=== PATIENT | male | born 1945 | race Caucasian/White ===

== ENCOUNTER 2019-12-22 13:20 | Outpatient (CLI) | payer MEDICARE, SELFPAY ==
--- NOTE | 2019-12-22 13:22 | ECG_ITS ---
Measurements Intervals [place] Rate: 57 P: 45 [place]: 167 QRS: -4 QRSD: 96 T: 61 QT: 380 QTc: 372 Interpretive Statements SINUS BRADYCARDIA DELAYED PRECORDIAL R/S TRANSITION BASELINE ARTIFACT- I, III, AVR, AVL, AVF BORDERLINE ECG Electronically Signed On 12-22-2019 13:44:12 CDT by Perez Mata D.O.
== END 2019-12-22 13:21 | disposition home or self-care (01) ==
PROVIDERS: PCP Family Medicine Adolescent Medicine; Visit Provider Urology
DX: Z87.438 Personal history of other diseases of male genital organs (principal); E78.00 Pure hypercholesterolemia, unspecified; R94.31 Abnormal electrocardiogram [ECG] [EKG]
CPT/HCPCS: 87086; 93005

== ENCOUNTER 2023-03-19 12:41 | Outpatient (CLI) | payer MEDICARE, SELFPAY ==
--- NOTE | ~2023-03-19 | PE_ITS ---
EXAMINATION: PET_PETPSMAST_PT DATE: 03/19/2023 15:34 INDICATION: Malignant neoplasm of prostate. TECHNIQUE: 9.002 mCi of piflufolastat F-18 was administered intravenously. Low dose computed tomograp hy (CT) images were acquired from the base of the brain to the proximal thighs for attenuation correc tion and anatomic localization. Automated exposure control was employed. Dose-length product (DLP) wa s 494 mGy-cm. Positron emission tomography (PET) images were acquired in the same distribution. COMPARISON: None FINDINGS: Head/neck: There are no pathologically enlarged lymph nodes. Chest: Lungs demonstrate mild atelectasis. There are calcified pleural plaques on the left. No pleura l effusion. The heart size is normal. There are coronary artery calcifications. No pericardial effusi on. There are calcifications of aortic valve. There is a small sliding hiatal hernia. Abdomen/pelvis/proximal thighs: The liver, gallbladder, spleen, pancreas, and adrenal glands are norm al. There is cortical thinning of the kidneys. There is calcified atherosclerosis of the aorta and ma ny of the other arteries. The prostate is severely enlarged with asymmetric extension into the bladde r on the right. There is focal increased activity in the posterior inferior prostate at midline with maximum SUV of 6.0. There is diverticulosis of the colon without evidence of diverticulitis. There ar e no pathologically enlarged lymph nodes. There is no free intraperitoneal fluid. There is no osseous malignancy. IMPRESSION: 1. Severely enlarged prostate with focal increased activity in the posterior inferior prostate at the midline, consistent with primary malignancy. No evidence of metastatic disease. Reviewed, dictated and finalized at location A. IMPRESSION: 1. Severely enlarged prostate with focal increased activity in the posterior in ferior prostate at the midline, consistent with primary malignancy. No evidence of metastatic disease.
== END 2023-03-19 12:42 | disposition home or self-care (01) ==
PROVIDERS: PCP Family Medicine Adolescent Medicine; Visit Provider Urology
DX: C61 Malignant neoplasm of prostate (principal); R97.20 Elevated prostate specific antigen [PSA]; N40.0 Benign prostatic hyperplasia without lower urinary tract symptoms
CPT/HCPCS: 78815; A9595

== ENCOUNTER 2023-04-15 19:29 | Inpatient (IN) | payer MEDICARE, SELFPAY ==
--- NOTE | ~2023-04-15 | CT_ITS ---
CT of the Abdomen and Pelvis: Indication: Hematuria Technique: 2.5 mm axial scans were obtained through the abdomen and pelvis following intravenous adm inistration of 100 cc of Omnipaque 350. Dose reduction technique was used on this scan by utilizing a utomated exposure control and iterative reconstruction technique. The dose-length product (DLP) was 7 75.11 mGy-cm. Findings: Scans through the lung bases demonstrate calcified left basilar pleural plaque. The liver, spleen, pancreas, gallbladder, adrenals and kidneys are within normal limits. There are at herosclerotic calcifications of the aorta. No lymphadenopathy. No bowel obstruction or bowel wall thickening. There is no evidence to suggest acute appendicitis. Images through the pelvis were performed. Orta catheter present in the urinary bladder. Large amount of hyperdensity are present in the urinary bladder, consistent with blood products. Small amount of air also present in the urinary bladder. Prostate gland is enlarged. No ascites. Impression: Large amount of hyperdense blood products within the urinary bladder, as well as Orta catheter ballo on and small amount of intraluminal air in urinary bladder. Enlarged, heterogeneous prostate gland. 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 Enlarged, heterogeneous prostate gland.
--- NOTE | ~2023-04-15 | US_ITS ---
EXAMINATION: US pelvic limited INDICATION: Gross hematuria, assess catheter position TECHNIQUE: Targeted ultrasound urinary bladder is obtained. COMPARISON: CT from today FINDINGS: Sonographic images demonstrate the Orta catheter within the urinary bladder. The bladder i s somewhat decompressed. Hyperechoic serial surrounding the Orta catheter is consistent with hematom a as seen on the comparison CT. IMPRESSION: 1. Orta catheter within the urinary bladder. 2. Bladder hematoma. Reviewed, dictated and finalized at location B. 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
[2023-04-15 19:44] VITALS: BP 187/100; PULSE 75; RESP 14; TEMP 36.7; O2SAT 100
--- NOTE | 2023-04-15 20:34 | ED.MALEGU ---
HPI - Male Genitourinary General Chief complaint: Urogenital-Male Stated complaint: urinary retention Time Seen by Provider: 04/15/23 20:19 History of Present Illness HPI Narrative: This is a 78-year-old male with a regular over the last 1-3 has had surgery on his prostate 8 days ago. He did note hematuria on 04/13/2023 which was thick bloody discharge from his penis. He called his urologist, Dr. Matamoros who recently said that this sounded normal and anticipated that it would resolve but possibly recur and this was normal healing. Patient states urine did return to normal yellow and he has been intermittently passing clots while voiding which she was told would also be normal. Approximately 4 PM today was his last void which contained clots. Shortly thereafter he began to have pain at his penis and in his abdomen and he was unable to void. He thought perhaps it was blocking his urethra and he tried to drink a lot of water. He denies any fevers. In acute distress complaining of abdominal pain but denies any back pain. He denies any underlying kidney dysfunction. No scrotal pain or swelling. Scheduled for follow up with urologist in July 2023. Related Data Home Medications Medication Instructions Recorded Confirmed aspirin 325 mg tablet 325 mg PO DAILY 12/20/19 12/05/22 atorvastatin 40 mg tablet 40 mg PO DAILY 12/20/19 12/05/22 cholecalciferol (vitamin D3) 25 25 mcg PO DAILY 12/20/19 12/05/22 mcg (1,000 unit) tablet clopidogrel 75 mg tablet (Plavix) 75 mg PO DAILY 12/20/19 12/05/22 ezetimibe 10 mg tablet 10 mg PO DAILY 12/20/19 12/05/22 modafinil 200 mg tablet 200 mg PO QAM PRN drowsiness 11/29/21 12/05/22 Allergies Allergy/AdvReac Type Severity Reaction Status Date / Time No Known Allergies Allergy Unknown Verified 04/15/23 20:55 [facility] Past Medical History Medical History (Updated 04/15/23 @ 23:38 by Annamarie Malone MD) Chronic kidney disease, stage 3a History of placement of stent in LAD coronary artery (~2009) Surgical History Surgical History (Updated 04/15/23 @ 22:22 by Annamarie Malone MD) History of prostate surgery HoLEP 04/07/23 Family History Family History Other Asthma Sibling Heart disease Other Colon polyp Social History Social History Smoking status: Never smoker Second hand tobacco smoke exposure: No Alcohol intake: never Substance use: never Substance use type: does not use Lack of Transportation: No Lack of Food: Never True Current Housing: I Have Housing Concerned About Future Housing: No Difficulty Paying Gas/Electric Bills: No Difficulty Paying for Meds: No Currently Unemployed: No Education: Master's Degree or Higher Difficulty w/ Childcare or Family Care: No Living arrangements: with family Occupation/Education: retired Gender identity (if verbalized by the patient): Male Sexual Orientation (if Verbalized by the Patient): Straight or Heterosexual Spiritual care concerns: No Agree to blood products: Yes Exam Const: General: alert; No confusion or diaphoretic Nutritional Appearance: well nourished Limitations: no limitations Other: Patient is initially in moderate distress, writhing in the bed clutching his abdomen and penis HENMT: Head: normal to inspection Other: Gross auditory acuity intact Resp: Effort & Inspection: normal respiratory effort, not labored, no retractions, not tachypneic and no use of accessory muscles Cardio: Rate: regular rate, not bradycardic and not tachycardic GI: GI Palp: Yes Soft to palpation, No Tenderness to palpation present (GI), No Guarding due to palpation present (GI) and No Rigid due to palpation : General: Yes no CVA tenderness Penis: Yes normal penis (though blood at the meatus) Scrotum: scrotum normal Testes: Testes normal Other: No inguina
[2023-04-15 20:44] VITALS: BP 154/87; PULSE 65; RESP 18; O2SAT 100
[2023-04-15 20:44] LABS: Basophils Percent Auto 0.2 % (0.2-1.2); Eosinophils Absolute Auto 0.2 K/mm3 (0-0.3); Eosinophils Percent Auto 1.5 % (0-4.4); Hematocrit 34.7 % (42.0-52.0); Hemoglobin 10.9 g/dL (14.0-18.0); Immature Granulocyte Absolute 0.08 K/mm3 (0.00-0.031); Immature Granulocyte Percent A 0.6 % (0-0.5); Lymphocytes Absolute Auto 1.42 K/mm3 (0.9-3.2); Lymphocytes Percent Auto 10.9 % (18.3-44.2); Mean Corpuscular HGB Conc 31.4 g/dl (32-36); Mean Corpuscular Hemoglobin 31.1 pg (26-34); Mean Corpuscular Volume 98.9 fl (80-100); Mean Platelet Volume 8.9 fl (7.4-10.4); Monocytes Absolute Auto 1.3 K/mm3 (0.1-0.6); Monocytes Percent Auto 9.8 % (2.6-8.5); Neutrophils Absolute Auto 10.1 K/mm3 (1.3-6.7); Platelet Count Result 354 k/mm3 (150-375); Red Blood Count 3.51 M/mm3 (4.6-6.20); Red Cell Distribution Width 13.5 % (11.5-14.5); White Blood Count 13.1 K/mm3 (4.5-10.0)
[2023-04-15 20:54] LABS: Prothrombin Time 13.3 Seconds (11.1-14.7)
--- NOTE | 2023-04-15 20:55 | PC.NURSE ---
Patient refused pain medication at this time.
[2023-04-15 20:56] LABS: Anion Gap 7 mmol/L (8-16); Blood Urea Nitrogen 24 mg/dL (9-20); Calcium 8.5 mg/dL (8.4-10.2); Carbon Dioxide 22 mmol/L (22-30); Chloride 103 mmol/L (98-107); Estimated CRCL calculation 35 ml/min; Estimated Glomerular Filt Rate 42; Glucose 130 mg/dL (65-110); Potassium 3.4 mmol/L (3.4-5.0); Sodium 132 mmol/L (137-145)
[2023-04-15] MEDS: SODIUM CHLORIDE 0.9% IV 1,000 ML 500 ML IV CONT (22:36)
[2023-04-15] MEDS: MORPHINE SULFATE (*CRX) 4 MG/ML INJ IV PUSH ×2 (22:36→23:14)
[2023-04-15 22:51] LABS: Hemoglobin 10.6 g/dL (14.0-18.0)
[2023-04-15 22:59] LABS: Estimated CRCL calculation 40 ml/min; Estimated Glomerular Filt Rate 49
[2023-04-16 00:56] VITALS: BP 128/80; PULSE 84; RESP 15; O2SAT 100
[2023-04-16 01:30] VITALS: BP 152/87; PULSE 81; RESP 20; TEMP 36.6; O2SAT 100
[2023-04-16 01:32] VITALS: BMI 25.9
--- NOTE | 2023-04-16 01:43 | ADMGEN ---
This patient, Praveen Moreno, was admitted to [facility] Surg Room 319-01. Patient/family oriented to hospital policies and general routines including ID bracelet, bed and alarms, visiting hours, pain management, procedures, bathroom and other care routines, personal items, smoking policy, room service/diet, and visiting hours. Information on how to activate the Rapid Response Team has been discussed. Patient/Family are encouraged to report perceived risks to care and to ask questions if they do not understand what they are told or what they should do.
[2023-04-16] MEDS: ACETAMINOPHEN 500 MG TABLET 1000 MG PO (01:53)
[2023-04-16] MEDS: traZODone HCL 50 MG TABLET PO (01:54)
[2023-04-16 06:00] VITALS: BP 100/64; PULSE 69; RESP 16; TEMP 37.4; O2SAT 96
--- NOTE | 2023-04-16 08:03 | PM.IMHP ---
H&P: HPI History of Present Illness Date/Time: 04/16/23 08:03 Chief Complaint: Suprapubic pain, unable to pass urine Narrative: This is a 78-year-old with history of BPH, status post HoLEP prostate surgery [address] Woodard, CAD, hyperlipidemia present ED with a chief complaint of bloody urine and trouble with urination.? Patient has been having intermittent hematuria and passing clots in since the surgery. Sensitive 4:00 p.m. yesterday, patient cannot pass urine, and patient also has suprapubic pain. Patient denies chest pain, shortness breast, headache, focal weakness, nausea vomiting. Patient came to ED for evaluation, bladder scan is performed which demonstrates between 300-[address] shows Large amount of hyperdense blood products within the urinary bladder, as well as Orta catheter balloon and small amount of intraluminal air in urinary bladder. Enlarged, heterogeneous prostate gland. In the ED, patient was also found have elevated BUN creatinine above baseline, anemia, hemoglobin close to baseline. Orta catheter is placed in the ED, bladder irrigation was initiated. ER physician also consulted urologist. We admit patient for further evaluation and management Review of Systems Review of Systems: ROS negative except above PMFSH Past Medical History Medical History Chronic kidney disease, stage 3a History of placement of stent in LAD coronary artery (~2009) Surgical History Surgical History History of prostate surgery HoLEP 04/07/23 Family History Family History Other Asthma Sibling Heart disease Other Colon polyp Social History Social History Smoking status: Never smoker Second hand tobacco smoke exposure: No Alcohol intake: never Substance use: never Substance use type: does not use Lack of Transportation: No Lack of Food: Never True Current Housing: I Have Housing Concerned About Future Housing: No Difficulty Paying Gas/Electric Bills: No Difficulty Paying for Meds: No Currently Unemployed: No Education: Master's Degree or Higher Difficulty w/ Childcare or Family Care: No Living arrangements: with family Occupation/Education: retired Gender identity (if verbalized by the patient): Male Sexual Orientation (if Verbalized by the Patient): Straight or Heterosexual Spiritual care concerns: No Agree to blood products: Yes Meds Home Medications and Allergies Home Medications Medication Instructions Recorded Confirmed Type aspirin 325 mg tablet 325 mg PO DAILY 12/20/19 12/05/22 History atorvastatin 40 mg tablet 40 mg PO DAILY 12/20/19 12/05/22 History cholecalciferol (vitamin D3) 25 25 mcg PO DAILY 12/20/19 12/05/22 History mcg (1,000 unit) tablet clopidogrel 75 mg tablet (Plavix) 75 mg PO DAILY 12/20/19 12/05/22 History ezetimibe 10 mg tablet 10 mg PO DAILY 12/20/19 12/05/22 History modafinil 200 mg tablet 200 mg PO QAM PRN drowsiness 11/29/21 12/05/22 History indomethacin 50 mg capsule 50 mg PO TID PRN pain #30 caps 05/13/22 12/05/22 Rx zolpidem 10 mg tablet 10 mg PO PRN PRN Insomnia #90 tabs 07/22/22 12/05/22 Rx esomeprazole magnesium 40 mg 40 mg PO DAILY #90 caps 10/22/22 12/05/22 Rx capsule,delayed release Allergies Allergy/AdvReac Type Severity Reaction Status Date / Time No Known Allergies Allergy Unknown Verified 04/15/23 20:55 Vital Signs Vital Signs - 24 hr 04/15/23 19:44 04/15/23 20:44 04/16/23 00:56 Temperature 98.0 F Pulse Rate 75 65 84 Respiratory Rate 14 18 15 Blood Pressure 187/100 H 154/87 H 128/80 Pulse Oximetry 100 100 100 Oxygen Delivery Room Air 04/16/23 01:30 04/16/23 06:00 Temperature 97.9 F 99.3 F Pulse Rate 81 69 Respiratory Rate 20 16 Blood P
[2023-04-16] MEDS: TOLTERODINE TARTRATE 2 MG TABLET PO ×2 (08:13→21:41)
[2023-04-16 09:20] LABS: Iron 35 ug/dL (49-181)
[2023-04-16 09:30] LABS: Percent Iron Saturation 16 % (20-50)
[2023-04-16] MEDS: HYDROmorphone HCL INJ (*CRX) 1 MG/ML SYR 0.5 MG IV PUSH ×3 (09:30→21:41)
[2023-04-16] MEDS: cefTRIAXone 2 GM/NS 100 ML 2 GM/100 ML BAG IVPB (10:46)
--- NOTE | 2023-04-16 12:31 | WPDURCON ---
Assessment and Plan Assessment and plan (1) Urinary obstruction: Code(s): N13.9 - Obstructive and reflux uropathy, unspecified Status: Acute Assessment and Plan: Pt's catheter was removed and cleared of clot, then re-inserted and multiple large clots were removed for >20 minutes until urine was light pink/clear. The patient was visibly more comfortable after this and reported relief of pain, his bladder distention was also improved. CBI was restarted and is flowing to gravity with clear urine at this time. Pt. is resting comfortably after the procedure. (2) Complicated UTI (urinary tract infection): Code(s): N39.0 - Urinary tract infection, site not specified Status: Acute Assessment and Plan: Continue Ceftriaxone, unfortunately, no UA or culture was obtained before starting antibiotics, however I did order one to see if there is any chance it would grow something. (3) Post surgical complication: Qualifiers: Surgical complication system/body Area: genitourinary Code(s): T81.9XXA - Unspecified complication of procedure, initial encounter Status: Acute Assessment and Plan: Post operative gross hematuria s/p HOLEP, likely secondary to restarting anti coagulants, bladder irritation, increased activity or possible UTI. (4) Hematuria: Qualifiers: Hematuria type: gross Qualified Code(s): R31.0 - Gross hematuria Code(s): R31.9 - Hematuria, unspecified Status: Acute Assessment and Plan: Continue CBI until urine clears, then ok to wean CBI to off. Restart CBI immediately if blood returns, hold all anticoagulants and supplements at this time. Urology Consult Note HPI Date Seen: 04/16/23 Time Seen: 09:30 Requesting Physician: Ranjeet Monroy MD Primary Care Provider: Hieu Miranda MD Consult Narrative Reason for consult: Urinary Retention, Clots and Hematuria s/p HOLEP Narrative: Praveen Moreno is a 78 year old male who presented tot he ER late last night for acute onset of gross hematuria with clots and inability to urinate. He had a HOLEP with Dr. Matamoros on 04/07/23 and did relatively well afterward, but suddenly developed gross hematuria yesterday. He is on Plavix and ASA at home as well as an array of vitamins which he had started again. He denies dysuria and is afebrile. He did not have a UA or culture sent in the ER. He had a 22fr [address] bustillos placed in the ER which isn't draining well causing pelvic pain and spasms. A CT scan was done showing a moderate amount of blood clot in the bladder, but catheter placed in the bladder. SHELLY was also done showing a bladder hematoma. WBC is 13.1 and creatinine 1.40. Ceftriaxone was started before a urine culture could be collected. He has CBI running but it is not draining. Review of Systems Cardiovascular: Cardiovascular: Reports no additional cardiovascular complaints and Denies chest pain Respiratory: Respiratory: Reports no additional respiratory complaints Gastrointestinal: Gastrointestinal: Reports abdominal pain, Reports GI cramping, Denies nausea and Denies vomiting Genitourinary: Genitourinary: Reports hematuria, Reports oliguria, Denies genital pain, Denies flank pain and Reports urinary hesitancy PMFSH Past Medical History Medical History Chronic kidney disease, stage 3a History of placement of stent in LAD coronary artery (~2009) Surgical History Surgical History History of prostate surgery HoLEP 04/07/23 Family History Family History Other Asthma Sibling Heart disease Other Colon polyp Social History Social History Smoking status: Never smoker Second hand tobacco smoke exposure: No Alcohol intake: never Substance
--- NOTE | 2023-04-16 13:11 | PC.NURSE ---
On 04/16/23, the student, [Jovanna Velasquez ], provided care and completed Jodange documentation on this patient. I have reviewed the student's documentation and agree with the findings.
[2023-04-16 14:00] VITALS: BP 111/55; PULSE 67; RESP 16; TEMP 37.8; O2SAT 94
[2023-04-16 20:00] VITALS: PULSE 67; RESP 16; O2SAT 94
[2023-04-16 22:00] VITALS: BP 129/80; PULSE 99; RESP 18; TEMP 37.4; O2SAT 98
--- NOTE | 2023-04-16 22:23 | WPDUROPN2 ---
Progress Note: A&P Assessment and Plan (1) Hematuria: Qualifiers: Hematuria type: gross Qualified Code(s): R31.0 - Gross hematuria Code(s): R31.9 - Hematuria, unspecified Status: Acute Assessment and Plan: He is in clot retention. Will bring to OR to get urine flowing again. (2) Urinary obstruction: Code(s): N13.9 - Obstructive and reflux uropathy, unspecified Status: Acute Assessment and Plan: Will have new catheter after clot evacuation. Subjective Subjective Date/Time Seen: 04/16/23 22:23 Interval history: I was called to see the patient due to pelvic pain and no urine output. His catheter was in place with CBI off at the time of the visit. The catheter would not flush. It was repositioned and would not flush. I attempted to place a 24 [place] hematuria catheter, but his urethra was too narrow and the catheter could not be placed. I then attempted a 22 [place] hematuria catheter, but the urethra was too narrow. I was able to place a 20 [place] Coude catheter, but this would also not flush. Review of Systems Review of Systems: All systems reviewed & are unremarkable except as noted in HPI and below Exam Const: General: comfortable and no acute distress Resp: Effort & Inspection: normal respiratory effort GI: Other: suprapubic distention is noted. Urinary Catheter: Urinary Catheter: other (no draining) Psych: Mental Status: mental status grossly normal Objective Data Vital Signs Vital Signs: Vital Signs - 24 hr 04/16/23 00:56 04/16/23 01:30 04/16/23 06:00 Temperature 36.6 C 37.4 C Pulse Rate 84 81 69 Respiratory Rate 15 20 16 Blood Pressure 128/80 152/87 H 100/64 Pulse Oximetry 100 100 96 Oxygen Delivery 04/16/23 08:00 04/16/23 14:00 Temperature 37.8 C H Pulse Rate 67 Respiratory Rate 16 Blood Pressure 111/55 L Pulse Oximetry 94 Oxygen Delivery Room Air Intake/Output Intake/Output: Intake & Output 04/13/23 04/14/23 04/15/23 04/16/23 23:59 23:59 23:59 23:59 Intake Total 74351 Output Total 45726 Balance -80503 Meds/Results Medications: Active Medications Generic Name Dose Route Start Last Admin Trade Name Freq PRN Reason Stop Dose Admin Acetaminophen 1,000 mg 04/16/23 01:28 04/16/23 01:53 Acetaminophen 500 Mg Tablet PO 1,000 mg Q6H PRN Administration Mild Pain (1-3) or Fever Al Hydrox/Mg Hydrox/Simethicone 30 ml 04/16/23 01:28 Mag Hydrox/Al Hydrox/Simeth 30 Ml Udc PO Q6H PRN Indigestion Hydromorphone HCl 0.5 mg 04/16/23 01:27 04/16/23 21:41 Hydromorphone Hcl Inj (*Crx) 1 Mg/Ml Syr IV PUSH 0.5 mg Q3H PRN Administration Pain Rated 7-10 Ceftriaxone Sodium 2 gm in 100 mls @ 200 mls/hr 04/16/23 09:00 04/16/23 11:16 Rocephin 2 Gm/Ns 100 Ml IVPB Infused Q24H ITZEL Infusion Ondansetron HCl 4 mg 04/16/23 01:28 Ondansetron Inj 4 Mg/2 Ml Vial IV PUSH Q6H PRN Nausea And Vomiting Polyethylene Glycol 17 gm 04/16/23 01:28 Polyethylene Glycol 3350 17 Gm Powd.Pack PO QAM PRN Constipation Tolterodine Tartrate 2 mg 04/16/23 09:00 04/16/23 21:41 Tolterodine Tartrate 2 Mg Tablet PO 2 mg Q12HR ITZEL Administration Trazodone HCl 50 mg 04/16/23 01:29 04/16/23 01:54 Trazodone Hcl 50 Mg Tablet PO 50 mg HS PRN Administration Insomnia Radiology Results: ITS Impressions Abdomen/Pelvis CT 04/16/23 05:36 Impression: Large amount of hyperdense blood products within the urinary bladder, as well as Orta catheter balloon and small amount of intraluminal air in urinary bladder. Enlarged, heterogeneous prostate gland. Pelvis Ultrasound 04/16/23 08:38 IMPRESSION: 1. Orta catheter within the urinary bladder. 2. Bladder hematoma. Labs Labs: Laboratory Results - last 24 hr 04/15/23 04/16/23 22:45 08:39 Hgb 10.6 L Hct 33.0 L Creatinine 1.40 H Estim Creat Clear Calc
--- NOTE | 2023-04-16 23:15 | WPDANESEPP ---
Anes - Eval Pre Procedure Procedure: Operation Date: 04/16/23 23:15 Proposed Procedures p Cystoscopy, Evacuation Bladder Clots - Zane Giordano MD Date/Time: 04/16/23 23:15 Pre Op Diagnosis: Acute Urinary Retention; Gross Hematuria; Postop C Patient Data Age: 78 Gender: M Height: 1.75 m Weight: 79.5 kg Last Vital Signs Temp 37.8 C H 04/16/23 14:00 Pulse 67 04/16/23 20:00 Resp 16 04/16/23 20:00 BP 111/55 L 04/16/23 14:00 Pulse Ox 94 04/16/23 20:00 O2 Del Method Room Air 04/16/23 20:00 Allergies Allergy/AdvReac Type Severity Reaction Status Date / Time No Known Allergies Allergy Unknown Verified 04/15/23 20:55 Home Medications Medication Instructions Recorded Confirmed Type aspirin 325 mg tablet 325 mg PO DAILY 12/20/19 12/05/22 History atorvastatin 40 mg tablet 40 mg PO DAILY 12/20/19 12/05/22 History cholecalciferol (vitamin D3) 25 25 mcg PO DAILY 12/20/19 12/05/22 History mcg (1,000 unit) tablet clopidogrel 75 mg tablet (Plavix) 75 mg PO DAILY 12/20/19 12/05/22 History ezetimibe 10 mg tablet 10 mg PO DAILY 12/20/19 12/05/22 History modafinil 200 mg tablet 200 mg PO QAM PRN drowsiness 11/29/21 12/05/22 History indomethacin 50 mg capsule 50 mg PO TID PRN pain #30 caps 05/13/22 12/05/22 Rx zolpidem 10 mg tablet 10 mg PO PRN PRN Insomnia #90 tabs 07/22/22 12/05/22 Rx esomeprazole magnesium 40 mg 40 mg PO DAILY #90 caps 10/22/22 12/05/22 Rx capsule,delayed release Laboratory Tests 04/16/23 08:39 Iron 35 L ug/dL (49-181) TIBC 218 L ug/dL (265-497) % Saturation 16 L % (20-50) Ferritin 93.30 ng/mL (11.1-264) Patient hx anesthesia problems: none Family hx anesthesia problems: none Results Review: All pre-operative results and documents have been reviewed as part of the pre-operative evaluation. [facility] Past Medical History Medical History (Updated 04/16/23 @ 23:16 by Carmen Rodriges CRNA) BPH (benign prostatic hyperplasia) Chronic kidney disease, stage 3a CKD (chronic kidney disease) FH: HTN (hypertension) GERD (gastroesophageal reflux disease) History of placement of stent in LAD coronary artery (~2009) HLD (hyperlipidemia) Surgical History Surgical History History of prostate surgery HoLEP 04/07/23 Family History Family History Other Asthma Sibling Heart disease Other Colon polyp Social History Social History Smoking status: Never smoker Second hand tobacco smoke exposure: No Alcohol intake: never Substance use: never Substance use type: does not use Lack of Transportation: No Lack of Food: Never True Current Housing: I Have Housing Concerned About Future Housing: No Difficulty Paying Gas/Electric Bills: No Difficulty Paying for Meds: No Currently Unemployed: No Education: Master's Degree or Higher Difficulty w/ Childcare or Family Care: No Living arrangements: with family Occupation/Education: retired Gender identity (if verbalized by the patient): Male Sexual Orientation (if Verbalized by the Patient): Straight or Heterosexual Spiritual care concerns: No Agree to blood products: Yes Exam Day of Procedure 04/16/23 23:15 Patient weight: normal Heart: regular rate and rhythm Lungs: normal air movement Airway: Mallampati scale Neurological: alert and oriented
--- NOTE | 2023-04-16 23:35 | P.PNAN_ITS ---
Anes - Eval Final PreProcedure Day of Procedure 04/16/23 23:35 Patient weight: overweight Heart: regular rate and rhythm Lungs: clear to auscultation Airway: Mallampati scale class II Neurological: alert and oriented Last oral intake: >/= 8 hours ASA classification: III Emergent: yes Anesthetic plan: proceed Anesthesia type and monitoring: general LMA and standard monitoring Results Review: All pre-operative results and documents have been reviewed as part of the pre- operative evaluation. Informed Consent: The patient's anesthetic plan and its attendant risks and benefits were discussed with the patient/family/POA. Questions were solicited and answers provided to the satisfaction of the patient/family/POA.
[2023-04-16] MEDS: LIDOCAINE HCL 2% GEL UROJET 10 ML PKG MUCOUS MEM (23:50)
--- NOTE | 2023-04-16 23:57 | W.PM.PROC2 ---
Procedure Note - Detailed Date of Procedure 04/16/23 Pre-op Diagnosis Acute Urinary Retention; Gross Hematuria; Postop C Post-op Diagnosis Same Procedure Performed cystoscopy with clot evacuation, fulguration of bleeding, and complex catheter placement Surgeon Zane Giordano MD Anesthesia General Indications hematuria Findings clot in bladder. Small area of bleeding at left bladder neck Description of Procedure The patient was brought to the operating room in stable condition. He was placed under general anesthesia. He was prepped and draped in sterile fashion. A 22 Setswana cystoscope was advanced through the urethra into the bladder. Clot was seen. The clot was evacuated. A small area of bleeding was noted on the left bladder neck. This was fulgurated. The bladder and prostate were examined. Evidence of the prior HOLEP was seen. The bladder neck was very wide. The cystoscope was removed. Lidocaine jelly was placed. A [address] hematuria catheter was placed. The bladder was flushed. No clots were noted. CBI was started. The patient tolerated the procedure well. Estimated Blood Loss 10 Drains Yes Pathology None sent Complications No immediate complications Condition Stable Disposition PACU
[2023-04-17] VITALS (7 sets, daily range): BP systolic 104–128; BP diastolic 63–81; PULSE 66–89; RESP 14–20; TEMP 36.6–37.9; O2SAT 90–100
[2023-04-17] MEDS: LACTATED RINGERS 1,000 ML 30 ML IV CONT (00:04)
[2023-04-17] MEDS: HYDROmorphone HCL INJ (*CRX) 1 MG/ML SYR 0.5 MG IV PUSH ×4 (01:48→21:42)
--- NOTE | 2023-04-17 06:50 | WPDUROPN2 ---
Progress Note: A&P Assessment and Plan (1) Urinary obstruction: Code(s): N13.9 - Obstructive and reflux uropathy, unspecified Status: Acute (2) Hematuria: Qualifiers: Hematuria type: gross Qualified Code(s): R31.0 - Gross hematuria Code(s): R31.9 - Hematuria, unspecified Status: Acute Assessment and Plan: Continue CBI today Tentatively plan voiding trial tomorrow if urine remains clear Subjective Subjective Date/Time Seen: 04/17/23 06:50 Interval history: Comfortable following clot evacuation last night Urine clear Review of Systems Cardiovascular: Cardiovascular: Denies chest pain, Denies lightheadedness, Denies palpitations and Denies dyspnea Respiratory: Respiratory: Denies dyspnea Gastrointestinal: Gastrointestinal: Denies diarrhea, Denies nausea and Denies vomiting Genitourinary: Genitourinary: Denies hematuria and Denies dysuria Endocrine: Endocrine: Denies palpitations Exam Const: General: no acute distress Resp: Effort & Inspection: normal respiratory effort GI: Inspection: non-distended GI Palp: No abdominal tenderness and No Guarding due to palpation present (GI) Auscultation: normal bowel sounds Objective Data Vital Signs Vital Signs: Vital Signs - 24 hr 04/16/23 08:00 04/16/23 14:00 04/16/23 20:00 Temperature 100.1 F H Pulse Rate 67 67 Respiratory Rate 16 16 Blood Pressure 111/55 L Pulse Oximetry 94 94 Oxygen Delivery Room Air Room Air Oxygen Flow Rate 04/17/23 00:04 04/17/23 00:15 04/17/23 00:30 Temperature 97.9 F Pulse Rate 89 76 76 Respiratory Rate 14 14 15 Blood Pressure 128/81 122/77 113/66 Pulse Oximetry 100 100 97 Oxygen Delivery Simple Face Mask Simple Face Mask Room Air Oxygen Flow Rate 10 10 04/17/23 00:40 04/16/23 22:00 Temperature 99.3 F Pulse Rate 76 99 Respiratory Rate 15 18 Blood Pressure 112/76 129/80 Pulse Oximetry 96 98 Oxygen Delivery Room Air Oxygen Flow Rate Intake/Output Intake/Output: Intake & Output 04/14/23 04/15/23 04/16/23 04/17/23 23:59 23:59 23:59 23:59 Intake Total 53437 150 Output Total 04265 063 [id number] -[id number] Meds/Results Medications: Active Medications Generic Name Dose Route Start Last Admin Trade Name Freq PRN Reason Stop Dose Admin Acetaminophen 1,000 mg 04/16/23 01:28 04/16/23 01:53 Acetaminophen 500 Mg Tablet PO 1,000 mg Q6H PRN Administration Mild Pain (1-3) or Fever Al Hydrox/Mg Hydrox/Simethicone 30 ml 04/16/23 01:28 Mag Hydrox/Al Hydrox/Simeth 30 Ml Udc PO Q6H PRN Indigestion Fentanyl Citrate 25 mcg 04/16/23 23:36 Fentanyl Citrate Inj (*Crx) 100 Mcg/2 Ml Vial IV PUSH Q2M PRN Pain Hydromorphone HCl 0.5 mg 04/16/23 01:27 04/17/23 01:48 Hydromorphone Hcl Inj (*Crx) 1 Mg/Ml Syr IV PUSH 0.5 mg Q3H PRN Administration Pain Rated 7-10 Ceftriaxone Sodium 2 gm in 100 mls @ 200 mls/hr 04/16/23 09:00 04/16/23 11:16 Rocephin 2 Gm/Ns 100 Ml IVPB Infused Q24H ITZEL Infusion Lactated Ringer's 1,000 mls @ 30 mls/hr 04/16/23 23:20 04/17/23 00:42 Lr - Lactated Ringers Iv IV CONT Infused .Q24H ITZEL Infusion Ondansetron HCl 4 mg 04/16/23 01:28 Ondansetron Inj 4 Mg/2 Ml Vial IV PUSH Q6H PRN Nausea And Vomiting Ondansetron HCl 4 mg 04/16/23 23:18 Ondansetron Inj 4 Mg/2 Ml Vial IV PUSH ONCE PRN Nausea Polyethylene Glycol 17 gm 04/16/23 01:28 Polyethylene Glycol 3350 17 Gm Powd.Pack PO QAM PRN Constipation Tolterodine Tartrate 2 mg 04/16/23 09:00 04/16/23 21:41 Tolterodine Tartrate 2 Mg Tablet PO 2 mg Q12HR ITZEL Administration Trazodone HCl 50 mg 04/16/23 01:29 04/16/23 01:54 Trazodone Hcl 50 Mg Tablet PO 50 mg HS PRN Administration Insomnia Radiology Results: ITS Impressions Abdomen/Pelvis CT 04/16/23 05:36 Impression: Large amount of hyperdense blood products with
--- NOTE | 2023-04-17 07:52 | PM.IMPN ---
Progress Note: A&P Assessment and Plan (1) Post surgical complication: Qualifiers: Surgical complication system/body Area: genitourinary Code(s): T81.9XXA - Unspecified complication of procedure, initial encounter Status: Acute (2) Acute kidney injury superimposed on CKD: Code(s): N17.9 - Acute kidney failure, unspecified; N18.9 - Chronic kidney disease, unspecified Status: Acute (3) Anemia: Qualifiers: Anemia type: other cause Other causes of anemia: acute posthemorrhagic Qualified Code(s): D62 - Acute posthemorrhagic anemia Code(s): D64.9 - Anemia, unspecified Status: Acute (4) Hematuria: Qualifiers: Hematuria type: gross Qualified Code(s): R31.0 - Gross hematuria Code(s): R31.9 - Hematuria, unspecified Status: Acute (5) Atherosclerotic heart disease of [place] coronary artery without angina pectoris: Code(s): I25.10 - Atherosclerotic heart disease of [place] coronary artery without angina pectoris Status: Acute (6) Pure hypercholesterolemia, unspecified: Code(s): E78.00 - Pure hypercholesterolemia, unspecified Status: Acute (7) Gastro-esophageal reflux disease without esophagitis: Code(s): K21.9 - Gastro-esophageal reflux disease without esophagitis Status: Acute (8) Complicated UTI (urinary tract infection): Code(s): N39.0 - Urinary tract infection, site not specified Status: Acute (9) Urinary obstruction: Code(s): N13.9 - Obstructive and reflux uropathy, unspecified Status: Acute Plan Urinary obstruction, Possible due to blood clot obstruction secondary to surgical complication Folic catheter is placed, irrigation per urologist's recommendation CT shows Large amount of hyperdense blood products within the urinary bladder, as well as Orta catheter balloon and small amount of intraluminal air in urinary bladder. Enlarged, heterogeneous prostate gland. ER physician consulted the urologist, follow recommendation Complicated UTI Patient has leukocytosis, low-grade fever, Possible complicated UTI Empirically treated with ceftriaxone IV, Follow-up urine culture and blood culture Patient has fever 100.3 over the night CASSIE on CKD Likely secondary to urinary obstruction Orta catheter is placed Follow-up BMP Gentle IV fluid History of CAD Hold aspirin and Plavix because of active bleeding Patient denies chest pain Hyperlipidemia Continue home medication Acute blood loss anemia Likely secondary to hematuria Follow-up CBC iron panel Subjective Date/time seen: 04/17/23 07:52 Interval history: Patient has a fever over the night 100.3 bladder irrigation, urine clear, pink urine, blood culture pending Exam Narrative: GENERAL: Pleasant, in no acute distress. Well-nourished. - EYES: EOMI. Anicteric. - HENT: Moist mucous membranes. - LUNGS: Clear to auscultation bilaterally, no wheezing, rhonchi, or rales. - CARDIOVASCULAR: Regular rate and rhythm. No murmur. No JVD. - ABDOMEN: Soft, non-tender and non-distended. No palpable masses. - EXTREMITIES: No edema. Peripheral pulses 2+. Non-tender. - NEUROLOGIC: No focal neurological deficits. CN II-XII grossly intact. - PSYCHIATRIC: Awake, Alert and oriented x 3. Appropriate mood and affect. - SKIN: No rashes or lesions. Warm. - LYMPH: No cervical lymphadenopathy. Objective Data Vital Signs Vital Signs: Vital Signs - 24 hr 04/16/23 08:00 04/16/23 14:00 04/16/23 20:00 Temperature 100.1 F H Pulse Rate 67 67 Respiratory Rate 16 16 Blood Pressure 111/55 L Pulse Oximetry 94 94 Oxygen Delivery Room Air Room Air Oxygen Flow Rate 04/17/23 00:04 04/17/23 00:15 04/17/23 00:30 Temperature 97.9 F Pulse Rate 89 76 76 Respiratory Rate 14 14 15 Blood Pressure 128/81 122/77 113/66 Pulse Oximetry 100 100 97 Oxygen Delivery Simple Face Mask Simple Face Mask Room Air Oxygen Flow Ra
[2023-04-17 08:24] LABS: Basophils Percent Auto 0.2 % (0.2-1.2); Eosinophils Absolute Auto 0.1 K/mm3 (0-0.3); Eosinophils Percent Auto 1.4 % (0-4.4); Hematocrit 30.7 % (42.0-52.0); Hemoglobin 9.4 g/dL (14.0-18.0); Immature Granulocyte Absolute 0.04 K/mm3 (0.00-0.031); Immature Granulocyte Percent A 0.4 % (0-0.5); Lymphocytes Absolute Auto 0.56 K/mm3 (0.9-3.2); Lymphocytes Percent Auto 5.7 % (18.3-44.2); Mean Corpuscular HGB Conc 30.6 g/dl (32-36); Mean Corpuscular Hemoglobin 30.5 pg (26-34); Mean Corpuscular Volume 99.7 fl (80-100); Mean Platelet Volume 8.7 fl (7.4-10.4); Monocytes Absolute Auto 0.6 K/mm3 (0.1-0.6); Monocytes Percent Auto 6.1 % (2.6-8.5); Neutrophils Absolute Auto 8.5 K/mm3 (1.3-6.7); Neutrophils Percent Auto 86.2 % (45.5-73.1); Platelet Count Result 346 k/mm3 (150-375); Red Blood Count 3.08 M/mm3 (4.6-6.20); Red Cell Distribution Width 13.4 % (11.5-14.5); White Blood Count 9.8 K/mm3 (4.5-10.0)
[2023-04-17 08:38] LABS: Anion Gap 4 mmol/L (8-16); Blood Urea Nitrogen 21 mg/dL (9-20); Calcium 8.5 mg/dL (8.4-10.2); Carbon Dioxide 27 mmol/L (22-30); Chloride 105 mmol/L (98-107); Estimated CRCL calculation 37 ml/min; Estimated Glomerular Filt Rate 45; Glucose 107 mg/dL (65-110); Potassium 4.3 mmol/L (3.4-5.0); Sodium 136 mmol/L (137-145)
--- NOTE | 2023-04-17 09:12 | WPDANESPN ---
Anes - Prog Note Post-Op Date/Time: 04/17/23 09:12 Cardiovascular status: normal Respiratory status: normal Airway patency: baseline Mental status: baseline Post-Op hydration status: normal Vital Signs: Last Vital Signs Temp 37.9 C H 04/17/23 06:00 Pulse 85 04/17/23 06:00 Resp 18 04/17/23 06:00 BP 127/65 04/17/23 06:00 Pulse Ox 94 04/17/23 06:00 O2 Del Method Room Air 04/17/23 00:40 O2 Flow Rate 10 04/17/23 00:15 Pain Score (VAS): 07/19 I/O: Intake & Output 04/16/23 04/17/23 04/17/23 23:59 07:59 15:59 Intake Total 240 150 Output Total 54005 22023 Balance -14517 -10166 Laboratory Tests 04/17/23 08:12 04/16/23 04/17/23 08:39 08:12 WBC Pending RBC Pending Hgb Pending Hct Pending MCV Pending MCH Pending MCHC Pending RDW Pending Plt Count Pending MPV Pending Immature Gran % (Auto) Pending Neut % (Auto) Pending Lymph % (Auto) Pending [place] % (Auto) Pending Eos % (Auto) Pending Baso % (Auto) Pending Lymph # (Auto) Pending [place] # (Auto) Pending Eos # (Auto) Pending Baso # (Auto) Pending Abs Immat Gran (auto) Pending Absolute Neuts (auto) Pending Absolute Nucleated RBC Pending Nucleated RBC % Pending Sodium 136 L Potassium 4.3 Chloride 105 Carbon Dioxide 27 Anion Gap 4 L BUN 21 H Creatinine 1.50 H Estim Creat Clear Calc 37 Estimated GFR 45 L Glucose 107 Calcium 8.5 Iron 35 L TIBC 218 L % Saturation 16 L Ferritin 93.30 Post-procedural complaints: none Patient Feedback: Patient satisfied with anesthetic care.
[2023-04-17] MEDS: TOLTERODINE TARTRATE 2 MG TABLET PO ×2 (09:40→22:27)
[2023-04-17] MEDS: cefTRIAXone 2 GM/NS 100 ML 2 GM/100 ML BAG IVPB (09:40)
[2023-04-17] MEDS: traZODone HCL 50 MG TABLET PO (21:43)
[2023-04-18] MEDS: HYDROcodone/acetaminophen (*CRX) 5-325 MG TABLET 1 TAB PO (05:38)
[2023-04-18 06:00] VITALS: BP 112/62; PULSE 86; RESP 18; TEMP 37; O2SAT 95
--- NOTE | 2023-04-18 06:56 | WPDUROPN2 ---
Progress Note: A&P Assessment and Plan (1) Urinary obstruction: Code(s): N13.9 - Obstructive and reflux uropathy, unspecified Status: Acute (2) Post surgical complication: Qualifiers: Surgical complication system/body Area: genitourinary Code(s): T81.9XXA - Unspecified complication of procedure, initial encounter Status: Acute Assessment and Plan: Urine perfectly clear this morning -> cahteter removed fo voiding trial Anticipate discharge midday Suggest discharge on Omnicef x5 days and a few pain pill(ie. [place]) Subjective Subjective Date/Time Seen: 04/18/23 06:56 Interval history: Comfortable, urine clear Review of Systems Cardiovascular: Cardiovascular: Denies chest pain, Denies lightheadedness, Denies palpitations and Denies dyspnea Respiratory: Respiratory: Denies dyspnea Gastrointestinal: Gastrointestinal: Denies diarrhea, Denies nausea and Denies vomiting Genitourinary: Genitourinary: Denies hematuria and Denies dysuria Endocrine: Endocrine: Denies palpitations Exam Const: General: no acute distress Resp: Effort & Inspection: normal respiratory effort GI: Inspection: non-distended GI Palp: No abdominal tenderness and No Guarding due to palpation present (GI) Auscultation: normal bowel sounds Objective Data Vital Signs Vital Signs: Vital Signs - 24 hr 04/17/23 08:00 04/17/23 14:00 04/17/23 22:00 Temperature 99.3 F 98.3 F Pulse Rate 77 66 Respiratory Rate 20 18 Blood Pressure 104/66 110/63 Pulse Oximetry 94 90 Oxygen Delivery Room Air 04/18/23 06:00 Temperature 98.6 F Pulse Rate 86 Respiratory Rate 18 Blood Pressure 112/62 Pulse Oximetry 95 Oxygen Delivery Intake/Output Intake/Output: Intake & Output 04/15/23 04/16/23 04/17/23 04/18/23 23:59 23:59 23:59 23:59 Intake Total 08182 3181 729 Output Total 67927 24190 1800 [facility] -[id number] [id number] [id number] Meds/Results Medications: Active Medications Generic Name Dose Route Start Last Admin Trade Name Freq PRN Reason Stop Dose Admin Acetaminophen 1,000 mg 04/16/23 01:28 04/16/23 01:53 Acetaminophen 500 Mg Tablet PO 1,000 mg Q6H PRN Administration Mild Pain (1-3) or Fever Al Hydrox/Mg Hydrox/Simethicone 30 ml 04/16/23 01:28 Mag Hydrox/Al Hydrox/Simeth 30 Ml Udc PO Q6H PRN Indigestion Fentanyl Citrate 25 mcg 04/16/23 23:36 Fentanyl Citrate Inj (*Crx) 100 Mcg/2 Ml Vial IV PUSH Q2M PRN Pain Hydromorphone HCl 0.5 mg 04/16/23 01:27 04/17/23 21:42 Hydromorphone Hcl Inj (*Crx) 1 Mg/Ml Syr IV PUSH 0.5 mg Q3H PRN Administration Pain Rated 7-10 Ceftriaxone Sodium 2 gm in 100 mls @ 200 mls/hr 04/16/23 09:00 04/17/23 09:40 Rocephin 2 Gm/Ns 100 Ml IVPB 200 mls/hr Q24H IZTEL Administration Ondansetron HCl 4 mg 04/16/23 01:28 Ondansetron Inj 4 Mg/2 Ml Vial IV PUSH Q6H PRN Nausea And Vomiting Ondansetron HCl 4 mg 04/16/23 23:18 Ondansetron Inj 4 Mg/2 Ml Vial IV PUSH ONCE PRN Nausea Polyethylene Glycol 17 gm 04/16/23 01:28 Polyethylene Glycol 3350 17 Gm Powd.Pack PO QAM PRN Constipation Tolterodine Tartrate 2 mg 04/16/23 09:00 04/17/23 22:27 Tolterodine Tartrate 2 Mg Tablet PO 2 mg Q12HR ITZEL Administration Trazodone HCl 50 mg 04/16/23 01:29 04/17/23 21:43 Trazodone Hcl 50 Mg Tablet PO 50 mg HS PRN Administration Insomnia Radiology Results: ITS Impressions Abdomen/Pelvis CT 04/16/23 05:36 Impression: Large amount of hyperdense blood products within the urinary bladder, as well as Orta catheter balloon and small amount of intraluminal air in urinary bladder. Enlarged, heterogeneous prostate gland. Pelvis Ultrasound 04/16/23 08:38 IMPRESSION: 1. Orta catheter within the urinary bladder. 2. Bladder hematoma. Labs Labs: Laboratory Results - last 24 hr 04/17/23 08:12 WBC 9.8 RBC 3.08
[2023-04-18] MEDS: TOLTERODINE TARTRATE 2 MG TABLET PO (08:07)
[2023-04-18] MEDS: cefTRIAXone 2 GM/NS 100 ML 2 GM/100 ML BAG IVPB (08:07)
[2023-04-18 08:55] LABS: Basophils Percent Auto 0.3 % (0.2-1.2); Eosinophils Absolute Auto 0.2 K/mm3 (0-0.3); Eosinophils Percent Auto 1.6 % (0-4.4); Hematocrit 27.5 % (42.0-52.0); Hemoglobin 8.4 g/dL (14.0-18.0); Immature Granulocyte Absolute 0.05 K/mm3 (0.00-0.031); Immature Granulocyte Percent A 0.5 % (0-0.5); Lymphocytes Absolute Auto 0.68 K/mm3 (0.9-3.2); Lymphocytes Percent Auto 7.2 % (18.3-44.2); Mean Corpuscular HGB Conc 30.5 g/dl (32-36); Mean Corpuscular Hemoglobin 30.8 pg (26-34); Mean Corpuscular Volume 100.7 fl (80-100); Mean Platelet Volume 8.4 fl (7.4-10.4); Monocytes Absolute Auto 0.7 K/mm3 (0.1-0.6); Monocytes Percent Auto 7.1 % (2.6-8.5); Neutrophils Absolute Auto 7.8 K/mm3 (1.3-6.7); Neutrophils Percent Auto 83.3 % (45.5-73.1); Platelet Count Result 313 k/mm3 (150-375); Red Blood Count 2.73 M/mm3 (4.6-6.20); Red Cell Distribution Width 13.3 % (11.5-14.5); White Blood Count 9.4 K/mm3 (4.5-10.0)
[2023-04-18 09:04] LABS: Anion Gap 9 mmol/L (8-16); Blood Urea Nitrogen 22 mg/dL (9-20); Calcium 8.3 mg/dL (8.4-10.2); Carbon Dioxide 25 mmol/L (22-30); Chloride 102 mmol/L (98-107); Estimated CRCL calculation 35 ml/min; Estimated Glomerular Filt Rate 42; Glucose 131 mg/dL (65-110); Potassium 3.8 mmol/L (3.4-5.0); Sodium 136 mmol/L (137-145)
--- NOTE | 2023-04-18 09:06 | PM.IMPN ---
Progress Note: A&P Assessment and Plan (1) Post surgical complication: Qualifiers: Surgical complication system/body Area: genitourinary Code(s): T81.9XXA - Unspecified complication of procedure, initial encounter Status: Acute (2) Acute kidney injury superimposed on CKD: Code(s): N17.9 - Acute kidney failure, unspecified; N18.9 - Chronic kidney disease, unspecified Status: Acute (3) Anemia: Qualifiers: Anemia type: other cause Other causes of anemia: acute posthemorrhagic Qualified Code(s): D62 - Acute posthemorrhagic anemia Code(s): D64.9 - Anemia, unspecified Status: Acute (4) Hematuria: Qualifiers: Hematuria type: gross Qualified Code(s): R31.0 - Gross hematuria Code(s): R31.9 - Hematuria, unspecified Status: Acute (5) Atherosclerotic heart disease of [place] coronary artery without angina pectoris: Code(s): I25.10 - Atherosclerotic heart disease of [place] coronary artery without angina pectoris Status: Acute (6) Pure hypercholesterolemia, unspecified: Code(s): E78.00 - Pure hypercholesterolemia, unspecified Status: Acute (7) Gastro-esophageal reflux disease without esophagitis: Code(s): K21.9 - Gastro-esophageal reflux disease without esophagitis Status: Acute (8) Complicated UTI (urinary tract infection): Code(s): N39.0 - Urinary tract infection, site not specified Status: Acute (9) Urinary obstruction: Code(s): N13.9 - Obstructive and reflux uropathy, unspecified Status: Acute Plan Urinary obstruction, Possible due to blood clot obstruction secondary to surgical complication Folic catheter is placed, irrigation per urologist's recommendation CT shows Large amount of hyperdense blood products within the urinary bladder, as well as Orta catheter balloon and small amount of intraluminal air in urinary bladder. Enlarged, heterogeneous prostate gland. ER physician consulted the urologist, Appreciate urologist consultation, bladder is irrigated, now patient has clear urine, no urinary tract obstruction per neurologist recommend discharge patient and patient will be seen in office in 3 weeks Complicated UTI Patient has leukocytosis, low-grade fever, Possible complicated UTI Empirically treated with ceftriaxone IV, Follow-up urine culture and blood culture Patient has fever 100.3 over the night 04/17 Now patient has no fever, white blood cell within normal minute, blood culture has no growth of bacteria so far, changed to Omnicef p.o. for 5 days per urologist recommendation CASSIE on CKD Likely secondary to urinary obstruction Orta catheter is placed Follow-up BMP Gentle IV fluid improves f/w up per PCP and urologist in offices History of CAD Hold aspirin and Plavix because of active bleeding during hospitalization Patient denies chest pain resume at dc Hyperlipidemia Continue home medication Acute blood loss anemia Likely secondary to hematuria Follow-up CBC iron panel: Suggesting iron deficiency. Start ferrous sulfate p.o. Subjective Date/time seen: 04/18/23 09:07 Interval history: Patient has no obvious pain, urine clear afebrile overnight, blood culture has no growth so far Exam Narrative: GENERAL: Pleasant, in no acute distress. Well-nourished. - EYES: EOMI. Anicteric. - HENT: Moist mucous membranes. - LUNGS: Clear to auscultation bilaterally, no wheezing, rhonchi, or rales. - CARDIOVASCULAR: Regular rate and rhythm. No murmur. No JVD. - ABDOMEN: Soft, non-tender and non-distended. No palpable masses. - EXTREMITIES: No edema. Peripheral pulses 2+. Non-tender. - NEUROLOGIC: No focal neurological deficits. CN II-XII grossly intact. - PSYCHIATRIC: Awake, Alert and oriented x 3. Appropriate mood and affect. - SKIN: No rashes or lesions. Warm. - LYMPH: No cervical lymphadenopathy. Objective Data Vital Signs Vital Signs: Sangeetha
--- NOTE | 2023-04-18 09:17 | PM.DS ---
DS: Admitting Diagnosis Discharge Date 04/18/23 Admitting Diagnosis (1) Post surgical complication: ?Qualifiers: ?Surgical complication system/body Area:?genitourinary ?Code(s): T81.9XXA - Unspecified complication of procedure, initial encounter ?Status:?Acute (2) Acute kidney injury superimposed on CKD: ?Code(s): N17.9 - Acute kidney failure, unspecified; N18.9 - Chronic kidney disease, unspecified ?Status:?Acute (3) Anemia: ?Qualifiers: ?Anemia type:?other cause??Other causes of anemia:?acute posthemorrhagic? Qualified Code(s):?D62 - Acute posthemorrhagic anemia ?Code(s): D64.9 - Anemia, unspecified ?Status:?Acute (4) Hematuria: ?Qualifiers: ?Hematuria type:?gross? Qualified Code(s):?R31.0 - Gross hematuria ?Code(s): R31.9 - Hematuria, unspecified ?Status:?Acute (5) Atherosclerotic heart disease of [place] coronary artery without angina pectoris: ?Code(s): I25.10 - Atherosclerotic heart disease of [place] coronary artery without angina pectoris ?Status:?Acute (6) Pure hypercholesterolemia, unspecified: ?Code(s): E78.00 - Pure hypercholesterolemia, unspecified ?Status:?Acute (7) Gastro-esophageal reflux disease without esophagitis: ?Code(s): K21.9 - Gastro-esophageal reflux disease without esophagitis ?Status:?Acute (8) Complicated UTI (urinary tract infection): ?Code(s): N39.0 - Urinary tract infection, site not specified ?Status:?Acute (9) Urinary obstruction: ?Code(s): N13.9 - Obstructive and reflux uropathy, unspecified DS: Discharge Diagnosis Discharge Diagnosis (1) Post surgical complication: Qualifiers: Surgical complication system/body Area: genitourinary Code(s): T81.9XXA - Unspecified complication of procedure, initial encounter Status: Acute (2) Acute kidney injury superimposed on CKD: Code(s): N17.9 - Acute kidney failure, unspecified; N18.9 - Chronic kidney disease, unspecified Status: Acute (3) Anemia: Qualifiers: Anemia type: other cause Other causes of anemia: acute posthemorrhagic Qualified Code(s): D62 - Acute posthemorrhagic anemia Code(s): D64.9 - Anemia, unspecified Status: Acute (4) Hematuria: Qualifiers: Hematuria type: gross Qualified Code(s): R31.0 - Gross hematuria Code(s): R31.9 - Hematuria, unspecified Status: Acute (5) Atherosclerotic heart disease of [place] coronary artery without angina pectoris: Code(s): I25.10 - Atherosclerotic heart disease of [place] coronary artery without angina pectoris Status: Acute (6) Pure hypercholesterolemia, unspecified: Code(s): E78.00 - Pure hypercholesterolemia, unspecified Status: Acute (7) Gastro-esophageal reflux disease without esophagitis: Code(s): K21.9 - Gastro-esophageal reflux disease without esophagitis Status: Acute (8) Complicated UTI (urinary tract infection): Code(s): N39.0 - Urinary tract infection, site not specified Status: Acute (9) Urinary obstruction: Code(s): N13.9 - Obstructive and reflux uropathy, unspecified Status: Acute DS: Summary Hospital Course Hospital Course: This is a 78-year-old with history of BPH, status post HoLEP prostate surgery [address] Woodard, CAD, hyperlipidemia present ED with a chief complaint of bloody urine and trouble with urination.? Patient has been having intermittent hematuria and passing clots in since the surgery.? Sensitive 4:00 p.m. yesterday, patient cannot pass urine, and patient also has suprapubic pain.? Patient denies chest pain, shortness breast, headache, focal weakness, nausea vomiting.? Patient came to ED for evaluation, bladder scan is performed which demonstrates between 300-400 cc of fluid.? CT shows?Large amount of hyperdense blood products within the urinary bladder, as well as Orta catheter balloon and
== END 2023-04-18 10:15 | disposition home or self-care (01) | DRG 908 ==
LOC: ANHED 20:24 → ANH3MEDSUR 23:15
PROVIDERS: Urology; Admitting Provider Internal Medicine; Emergency Provider Student in an Organized Health Care Education/Training Program; PCP Family Medicine Adolescent Medicine; Visit Provider Hospitalist
PROC: 0TCB8ZZ Extirpation of Matter from Bladder, Via Natural or Artificial Opening Endoscopic (ICD-10-PCS; CPT 52001; principal; 2023-04-16 23:15)
DX: N99.820 Postprocedural hemorrhage of a genitourinary system organ or structure following a genitourinary system procedure (principal); D62 Acute posthemorrhagic anemia; T83.511A Infection and inflammatory reaction due to indwelling urethral catheter, initial encounter; N17.9 Acute kidney failure, unspecified; N13.8 Other obstructive and reflux uropathy; N39.0 Urinary tract infection, site not specified; N99.89 Other postprocedural complications and disorders of genitourinary system; R31.0 Gross hematuria; R33.8 Other retention of urine; I25.10 Atherosclerotic heart disease of native coronary artery without angina pectoris; K21.9 Gastro-esophageal reflux disease without esophagitis; E78.5 Hyperlipidemia, unspecified; N18.31 Chronic kidney disease, stage 3a; Z95.5 Presence of coronary angioplasty implant and graft
CPT/HCPCS: 36415; 74177; 76857; 80048; 82565; 82728; 83540; 83550; 85014; 85018; 85025; 85610; 85730; 87040; 96374; 96376; 99285; A9270; C1757; J0696; J1170; J2270; J2590; J2704; J7030; J7120; Q9967

== ENCOUNTER 2023-04-21 10:37 | Inpatient (IN) | payer MEDICARE, SELFPAY ==
[2023-04-21] VITALS (45 sets, daily range): BP systolic 150–208; BP diastolic 75–160; PULSE 58–87; RESP 13–25; TEMP 36.6–36.8; O2SAT 83–100; BMI 25.4
--- NOTE | ~2023-04-21 | XR_ITS ---
Portable chest x-ray Comparison: 04/22/2023 Clinical History: Pneumothorax Findings: Right basilar chest tube is in place. Possible tiny right apical pneumothorax. Left lung c lear. Cardiomediastinal silhouette is stable. Right-sided subcutaneous emphysema present. Osseous st ructures are intact. Impression: Right-sided chest tube with possible tiny right apical pneumothorax. Reviewed, dictated and finalized at location . CHIPPER Impression: Right-sided chest tube with possible tiny right apical pneumothorax.
--- NOTE | ~2023-04-21 | XR_ITS ---
Clinical Indication: Pneumothorax PA and lateral views of the chest: Comparison: 04/21/2023 Findings: Right basilar chest tube is in place. There is moderate right pneumothorax present, with ri ght basilar atelectatic change. Left lung is clear. Cardiomediastinal silhouette is within normal ng its. Osseous structures are intact. Right-sided subcutaneous emphysema present. Impression: Right basilar chest tube in place, with moderate right pneumothorax, which is significantly increased from prior exam. Right basilar atelectatic change. Findings reported to the patient's nurse at the time of this reading. Reviewed, dictated and finalized at location M. SPLIT TRIMMER Impression: Right basilar chest tube in place, with moderate right pneumothorax, which is s ignificantly increased from prior exam. Right basilar atelectatic change. Findings reported to the patient's nurse at the time of this reading.
--- NOTE | ~2023-04-21 | XR_ITS ---
Portable chest x-ray Comparison: 04/23/2023 Clinical History: Pneumothorax Findings: Right basilar chest tube is in place. No definite pneumothorax seen. Left lung clear. Car diomediastinal silhouette is stable. Residual right-sided subcutaneous emphysema present. Osseous str uctures are intact. Impression: Right-sided chest tube without visible pneumothorax. Reviewed, dictated and finalized at location . RMATION TECHNOLOGY ADMINISTRATOR Impression: Right-sided chest tube without visible pneumothorax.
--- NOTE | ~2023-04-21 | XR_ITS ---
EXAMINATION: XR chest 1V portable DATE: 04/21/2023 11:18 INDICATION: Chest pressure. Shortness of breath. TECHNIQUE: A single frontal view of the chest was obtained on 2 radiographs. COMPARISON: CT abdomen and pelvis 04/16/2023 FINDINGS: There is a large right pneumothorax. There is atelectasis in right lung. No pleural effusio n. The heart size is normal. IMPRESSION: 1. Large right pneumothorax. I called this result to Uzair Gunter. Reviewed, dictated and finalized at location A. LE CLEANER
--- NOTE | ~2023-04-21 | XR_ITS ---
EXAMINATION: XR chest-chest tube insert/pos DATE: 04/21/2023 13:33 INDICATION: Right pneumothorax status post chest tube placement. TECHNIQUE: A single frontal view of the chest was obtained. COMPARISON: Chest single view at 11:12 AM FINDINGS: There are airspace opacities in right lower lung zone. No pleural effusion or pneumothorax. The heart size is normal. There is a right-sided chest tube. There is gas in right lateral chest wal l. IMPRESSION: 1. No pneumothorax. Right-sided chest tube in expected position. 2. Airspace opacities in right lower lung zone, likely atelectasis. Reviewed, dictated and finalized at location A. ENGINEER
--- NOTE | ~2023-04-21 | XR_ITS ---
XR chest 1V portable DATE: 04/24/2023 16:38 INDICATION: Chest tube removal for pneumothorax TECHNIQUE: Portable AP chest on 04/24/2023 at 1632 hours COMPARISON: 04/24/2023 portable AP chest at 0518 hours 04/22/2023 PA and lateral chest FINDINGS: Interval removal of right chest tube since 0518 hours today. New pneumothorax is evident. T here is subcutaneous emphysema along the right chest and abdominal wall. Midline cardiac and mediastinal structures. Coronary artery stent. No cardiomegaly. No hilar or media stinal enlargement. No pulmonary infiltrate or consolidation, pleural effusion or pneumothorax is noted. IMPRESSION: Removal of right chest tube; there is right chest and abdominal wall subcutaneous emphyse ma but no detectable right pneumothorax Reviewed, dictated and finalized at location L. MACHINE OPERATOR HELPER IMPRESSION: Removal of right chest tube; there is right chest and abdominal wal l subcutaneous emphysema but no detectable right pneumothorax
--- NOTE | 2023-04-21 10:45 | ECG_ITS ---
Measurements Intervals [place] Rate: 79 P: 91 SD: 165 QRS: 15 QRSD: 89 T: 72 QT: 379 QTc: 435 Interpretive Statements SINUS RHYTHM CANNOT RULE OUT SEPTAL INFARCT, AGE INDETERMINATE BASELINE ARTIFACT- I, II, III, AVR, AVL, AVF, V1-V6 ABNORMAL ECG COMPARED TO ECG 12/22/2019 13:55:48 SINUS RHYTHM NOW PRESENT Electronically Signed On 04-21-2023 11:38:27 [employer]AMEWORK DEVELOPER by Perez Mata D.O.
--- NOTE | 2023-04-21 10:57 | ED.GENADULT ---
HPI - General Adult General Chief complaint: Chest Pain <Uzair Gunter PA-C - Last Filed: 04/21/23 17:09> Stated complaint: chest tightness post prostate sx <Uzair Gunter PA-C - Last Filed: 04/21/23 17:09> Time Seen by Provider: 04/21/23 10:44 <Uzair Gunter PA-C - Last Filed: 04/21/23 17:09> Source: patient <LELO Crum Last Filed: 04/21/23 17:09> Mode of arrival: ambulatory <Uzair Gunter PA-C - Last Filed: 04/21/23 17:09> Limitations: no limitations <Uzair Gunter PA-C - Last Filed: 04/21/23 17:09> History of Present Illness HPI narrative: This is a 78-year-old male who presents to the ED with chief complaint of chest tightness and shortness of breath for the past 4 days. Reports 2 separate prostate surgeries in the past couple of weeks with the last one being 4 days ago. Patient reports he has a tightness that comes and go in the center of his chest. Denies any radiation of pain. Denies LOC or vomiting. Reports today he started becoming shortness of breath and noticed it was worse with exertion. He also reports largely nonproductive cough since the surgery. Denies fevers, chills, hemoptysis, abdominal pain, nausea, vomiting, back pain, urinary problems. <Uzair Gunter PA-C - Last Filed: 04/21/23 17:09> Related Data Home medications: Home Medications Medication Instructions Recorded Confirmed aspirin 325 mg tablet 325 mg PO DAILY 12/20/19 04/21/23 atorvastatin 40 mg tablet 40 mg PO DAILY 12/20/19 04/21/23 cholecalciferol (vitamin D3) 25 25 mcg PO DAILY 12/20/19 04/21/23 mcg (1,000 unit) tablet clopidogrel 75 mg tablet (Plavix) 75 mg PO DAILY 12/20/19 04/21/23 ezetimibe 10 mg tablet 10 mg PO DAILY 12/20/19 04/21/23 modafinil 200 mg tablet 200 mg PO PRN PRN drowsiness 11/29/21 04/21/23 lisinopril 10 mg tablet 10 mg PO DAILY 04/17/23 04/21/23 <Uzair Gunter PA-C - Last Filed: 04/21/23 17:09> Allergies/adverse reactions: Allergies Allergy/AdvReac Type Severity Reaction Status Date / Time No Known Allergies Allergy Unknown Verified 04/21/23 10:59 <Uzair Gunter PA-C - Last Filed: 04/21/23 17:09> Review of Systems Review of Systems: All systems as dictated in HPI <Uzair Gunter PA-C - Last Filed: 04/21/23 17:09> [facility] Past Medical History Medical History: Medical History (Updated 04/21/23 @ 16:01 by Radhika Allen PA-C) Benign prostatic hyperplasia Chronic kidney disease, stage 3a Coronary artery disease Gastroesophageal reflux disease Hyperlipidemia Hypertension <Uzair Gunter PA-C - Last Filed: 04/21/23 17:09> Surgical History Surgical History: Surgical History (Updated 04/21/23 @ 15:23 by Radhika Allen PA-C) History of placement of stent in LAD coronary artery (2010) History of prostate surgery 04/07/23 HoLEP. 04/16/23 cystoscopy with clot evacuation, fulguration of bleeding, and complex catheter placement. <Uzair Gunter PA-C - Last Filed: 04/21/23 17:09> Family History Family History: Family History Other Asthma Sibling Heart disease Other Colon polyp <Uzair Gunter PA-C - Last Filed: 04/21/23 17:09> Social History Social History: Social History (Updated 04/21/23 @ 15:24 by Radhika Allen PA-C) Social History: Surrogate medical decision maker: Simran Graciaall, spouse. Code status: Full code. Smoking status: Never smoker Second hand tobacco smoke exposure: No Alcohol intake: never Substance use: never Substance use type: does not use Lack of Transportation: No Lack of Food: Never True Current Housing: I Have Housing Concerned About Future Housing: No Difficulty Paying Gas/Electric Bills: No Difficulty Paying for Meds: No Currently Unemployed: No Education: Master's Degree or Higher Difficulty w/ Childcare or Family Care: No Living arrangements: with family Additional l
[2023-04-21 11:06] LABS: Basophils Absolute Auto 0.1 K/mm3 (0.0-0.1); Basophils Percent Auto 0.6 % (0.2-1.2); Eosinophils Absolute Auto 0.2 K/mm3 (0-0.3); Hematocrit 33.3 % (42.0-52.0); Hemoglobin 10.4 g/dL (14.0-18.0); Immature Granulocyte Absolute 0.18 K/mm3 (0.00-0.031); Immature Granulocyte Percent A 2.1 % (0-0.5); Lymphocytes Absolute Auto 1.43 K/mm3 (0.9-3.2); Lymphocytes Percent Auto 16.8 % (18.3-44.2); Mean Corpuscular HGB Conc 31.2 g/dl (32-36); Mean Corpuscular Hemoglobin 30.5 pg (26-34); Mean Corpuscular Volume 97.7 fl (80-100); Mean Platelet Volume 8.3 fl (7.4-10.4); Monocytes Absolute Auto 0.7 K/mm3 (0.1-0.6); Monocytes Percent Auto 8.5 % (2.6-8.5); Platelet Count Result 628 k/mm3 (150-375); Red Blood Count 3.41 M/mm3 (4.6-6.20); Red Cell Distribution Width 13.3 % (11.5-14.5); White Blood Count 8.5 K/mm3 (4.5-10.0)
[2023-04-21 11:16] LABS: INR 0.9; Prothrombin Time 12.8 Seconds (11.1-14.7)
[2023-04-21 11:17] LABS: Partial Thromboplastin Time 24.6 SECONDS (22.3-36.8)
[2023-04-21 11:20] LABS: Alanine Aminotransferase 23 U/L (6-50); Albumin Level 3.9 g/dL (3.5-5.1); Alkaline Phosphatase 105 U/L (38-126); Anion Gap 12 mmol/L (8-16); Aspartate Amino Transferase 27 U/L (17-59); Bilirubin,Total 0.6 mg/dL (0.2-1.3); Blood Urea Nitrogen 19 mg/dL (9-20); Carbon Dioxide 23 mmol/L (22-30); Chloride 105 mmol/L (98-107); Estimated CRCL calculation 37 ml/min; Estimated Glomerular Filt Rate 45; Glucose 120 mg/dL (65-110); Lipase 47 U/L (23-300); Potassium 3.7 mmol/L (3.4-5.0); Sodium 140 mmol/L (137-145)
[2023-04-21 11:31] LABS: Troponin I < 0.012 ng/mL (0.000-0.034)
[2023-04-21 11:44] LABS: D Dimer 0.96 ug/mL (<0.48)
[2023-04-21] MEDS: SODIUM CHLORIDE 0.9% IV 1,000 ML 999 ML (12:55)
[2023-04-21] MEDS: MIDAZOLAM HCL (*CRX) 2 MG/2 ML VIAL ×2 (12:55→13:15)
--- NOTE | 2023-04-21 14:29 | PC.NURSE ---
1255: 50mcg fentanyl and 2mg Versed both given IVP per EDP Dr.Russell BARRIGA while at pt bedside 1315: 25mcg fentanyl and 2mg Versed both given IVP per EDP Dr.Russell BARRIGA while at pt bedside Remaining 25mcg fentanyl wasted with Noelle HUMPHREYS
--- NOTE | 2023-04-21 14:50 | PM.IMHP ---
H&P: HPI History of Present Illness Date/Time: 04/21/23 14:50 Chief Complaint: Chest tightness and shortness of breath. Narrative: This is a very pleasant 78-year-old male with coronary artery disease and stent 2011, hypertension, hyperlipidemia, benign prostatic hyperplasia, gastroesophageal reflux disease who presented to the emergency department via private vehicle for evaluation of chest tightness and shortness of breath. The patient provides the following history. He is known to the hospitalist service from a recent admission last week at which time he was admitted with gross hematuria and difficulties urinating a little over [address] Matamoros. He underwent cystoscopy with clot evacuation, fulguration of bleeding, and complex catheter placement under general anesthesia on 04/16/2023. He was discharged home 2 days later on cefdinir; no urine culture was collected. Over the last several days he has developed increasing shortness of breath and intermittent chest tightness which ultimately brought him to the ER today. Chest x-ray on arrival showed a large right-sided pneumothorax for which a chest tube was placed. He has no history of pneumothorax, is a nonsmoker, and he has had no trauma. His main complaint at the time my evaluation is that of pain at the chest tube site. He denies fever, chills, sweats, syncope, near syncope, nausea, and vomiting. Review of Systems Review of Systems: Twelve systems were reviewed and are negative except for as per HPI. [facility] Past Medical History Medical History (Updated 04/21/23 @ 16:01 by Radhika Allen PA-C) Benign prostatic hyperplasia Chronic kidney disease, stage 3a Coronary artery disease Gastroesophageal reflux disease Hyperlipidemia Hypertension Surgical History Surgical History (Updated 04/21/23 @ 15:23 by Radhika Allen PA-C) History of placement of stent in LAD coronary artery (2010) History of prostate surgery 04/07/23 HoLEP. 04/16/23 cystoscopy with clot evacuation, fulguration of bleeding, and complex catheter placement. Family History Family History Other Asthma Sibling Heart disease Other Colon polyp Social History Social History (Updated 04/21/23 @ 15:24 by Radhika Allen PA-C) Social History: Surrogate medical decision maker: Simran Tiffanie, spouse. Code status: Full code. Smoking status: Never smoker Second hand tobacco smoke exposure: No Alcohol intake: never Substance use: never Substance use type: does not use Lack of Transportation: No Lack of Food: Never True Current Housing: I Have Housing Concerned About Future Housing: No Difficulty Paying Gas/Electric Bills: No Difficulty Paying for Meds: No Currently Unemployed: No Education: Master's Degree or Higher Difficulty w/ Childcare or Family Care: No Living arrangements: with family Additional living arrangements comments: Lives with spouse in [place]. 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 Spiritual care concerns: No Agree to blood products: Yes Meds Home Medications and Allergies Home Medications Medication Instructions Recorded Confirmed Type aspirin 325 mg tablet 325 mg PO DAILY 12/20/19 04/17/23 History atorvastatin 40 mg tablet 40 mg PO DAILY 12/20/19 04/17/23 History cholecalciferol (vitamin D3) 25 25 mcg PO DAILY 12/20/19 04/17/23 History mcg (1,000 unit) tablet clopidogrel 75 mg tablet (Plavix) 75 mg PO DAILY 12/20/19 04/17/23 History ezetimibe 10 mg tablet 10 mg PO DAILY 12/20/19 04/17/23 History modafinil 200 mg tablet 200 mg PO QAM PRN drowsiness 11/29/21 04/17/23 History indomethacin 50 mg capsule 50 mg PO TID PRN pain #30 caps 05/13/22 04/17/23 Rx zolpidem 10 mg tablet 10 mg PO PRN PRN Insomnia #90 tabs 07/22/22 04/17/23 Rx esomeprazole magnesium 40 mg 40 mg PO DAILY #90 caps
[2023-04-21] MEDS: MORPHINE SULFATE (*CRX) 2 MG/ML INJ IV PUSH ×2 (14:52→16:38)
--- NOTE | 2023-04-21 14:57 | PM.CNGS ---
Assessment and Plan Assessment and plan (1) Pneumothorax on right: Code(s): J93.9 - Pneumothorax, unspecified Status: Acute Assessment and Plan: Large right pneumothorax on chest x-ray. This is likely iatrogenic from recent intubation with general anesthesia. Repeat chest x-ray shows re-expansion of the right lung and chest tube in good position. Will keep chest tube to wall suction today. Repeat a chest x-ray tomorrow morning. Plan I have discussed the patient's case and plan of care with Dr. Winn. History of Present Illness Consult details Consult date: 04/21/23 Reason for consult: other (Right pneumothorax) Requesting physician: Uzair Gunter PA-C Narrative: This is a 78-year-old man presented to the ER today with complaints of shortness of breath. He has had 2 recent procedures for his prostate. He is status post HoLEP surgery earlier this month and returned with hematuria last week. He underwent cystoscopy with clot evacuation, fulguration of bleeding, and complex catheter placement with general anaesthesia on 04/16/2023. He reports over the next few days he noticed increasing shortness of breath. He additionally reports chest pain. This got progressively worse over the past day and ultimately brought him into the ER for evaluation this morning. Chest x-ray showed a large right pneumothorax. Right-sided chest tube was placed in the ER. Our service was consulted for the right pneumothorax. He is now seen in the ER. Patient denies any recent falls or trauma to the chest. Denies any recent cough. No previous pneumothorax. He is a nonsmoker. His main complaint is pain at the chest tube site. Repeat chest x-ray shows re-expansion of the right lung with chest tube in good position. Review of Systems Review of Systems: All systems reviewed & are unremarkable except as noted in HPI and below PMFSH Past Medical History Medical History BPH (benign prostatic hyperplasia) Chronic kidney disease, stage 3a CKD (chronic kidney disease) FH: HTN (hypertension) GERD (gastroesophageal reflux disease) History of placement of stent in LAD coronary artery (~2009) HLD (hyperlipidemia) Surgical History Surgical History History of prostate surgery HoLEP 04/07/23 04/16/23 cystoscopy with clot evacuation, fulguration of bleeding, and complex catheter placement Family History Family History Other Asthma Sibling Heart disease Other Colon polyp Social History Social History Smoking status: Never smoker Second hand tobacco smoke exposure: No Alcohol intake: never Substance use: never Substance use type: does not use Lack of Transportation: No Lack of Food: Never True Current Housing: I Have Housing Concerned About Future Housing: No Difficulty Paying Gas/Electric Bills: No Difficulty Paying for Meds: No Currently Unemployed: No Education: Master's Degree or Higher Difficulty w/ Childcare or Family Care: No Living arrangements: with family Occupation/Education: retired Gender identity (if verbalized by the patient): Male Sexual Orientation (if Verbalized by the Patient): Straight or Heterosexual Spiritual care concerns: No Agree to blood products: Yes Meds Home Medications and Allergies Home Medications Medication Instructions Recorded Confirmed Type aspirin 325 mg tablet 325 mg PO DAILY 12/20/19 04/17/23 History atorvastatin 40 mg tablet 40 mg PO DAILY 12/20/19 04/17/23 History cholecalciferol (vitamin D3) 25 25 mcg PO DAILY 12/20/19 04/17/23 History mcg (1,000 unit) tablet clopidogrel 75 mg tablet (Plavix) 75 mg PO DAILY 12/20/19 04/17/23 History ezetimibe 10 mg tablet 10 mg PO DAILY 12/20/19 04/17/23 History modafinil 200 mg tablet 200
[2023-04-21 15:05] LABS: Troponin I < 0.012 ng/mL (0.000-0.034)
--- NOTE | 2023-04-21 15:52 | ADMGEN ---
This patient, Praveen Moreno, was admitted to Medical Room 246-. Patient/family oriented to hospital policies and general routines including ID bracelet, bed and alarms, visiting hours, pain management, procedures, bathroom and other care routines, personal items, smoking policy, room service/diet, and visiting hours. Information on how to activate the Rapid Response Team has been discussed. Patient/Family are encouraged to report perceived risks to care and to ask questions if they do not understand what they are told or what they should do.
[2023-04-21 17:49] LABS: Troponin I < 0.012 ng/mL (0.000-0.034)
[2023-04-21] MEDS: HYDROcodone/acetaminophen (*CRX) 5-325 MG TABLET 1 TAB PO (21:33)
[2023-04-21] MEDS: CEFDINIR 300 MG CAPSULE PO (21:33)
[2023-04-21] MEDS: ZOLPIDEM TARTRATE (*CRX) 5 MG TABLET 10 MG PO (22:32)
[2023-04-22] VITALS (10 sets, daily range): BP systolic 166–201; BP diastolic 88–96; PULSE 53–75; RESP 17–20; TEMP 36.4–36.9; O2SAT 97–98
[2023-04-22] MEDS: HYDROcodone/acetaminophen (*CRX) 5-325 MG TABLET 1 TAB PO ×3 (04:18→23:56)
[2023-04-22 06:26] LABS: Hematocrit 29.6 % (42.0-52.0); Hemoglobin 9.4 g/dL (14.0-18.0); Mean Corpuscular HGB Conc 31.8 g/dl (32-36); Mean Corpuscular Hemoglobin 30.6 pg (26-34); Mean Corpuscular Volume 96.4 fl (80-100); Platelet Count Result 523 k/mm3 (150-375); Red Blood Count 3.07 M/mm3 (4.6-6.20); Red Cell Distribution Width 13.3 % (11.5-14.5); White Blood Count 8.2 K/mm3 (4.5-10.0)
[2023-04-22 06:38] LABS: Anion Gap 12 mmol/L (8-16); Blood Urea Nitrogen 16 mg/dL (9-20); Calcium 8.7 mg/dL (8.4-10.2); Carbon Dioxide 19 mmol/L (22-30); Chloride 109 mmol/L (98-107); Estimated CRCL calculation 46 ml/min; Estimated Glomerular Filt Rate 59; Glucose 106 mg/dL (65-110); Magnesium 2.1 mg/dL (1.6-2.3); Potassium 3.6 mmol/L (3.4-5.0); Sodium 140 mmol/L (137-145)
[2023-04-22] MEDS: CEFDINIR 300 MG CAPSULE PO ×2 (08:00→20:21)
[2023-04-22] MEDS: EZETIMIBE 10 MG TABLET PO (08:00)
[2023-04-22] MEDS: lisinopriL 10 MG TABLET PO ×2 (08:01→21:37)
[2023-04-22] MEDS: PANTOPRAZOLE 40 MG TABLET PO (08:01)
[2023-04-22] MEDS: FERROUS SULFATE 325 MG TABLET DR PO (08:01)
[2023-04-22] MEDS: ATORVASTATIN 40 MG TABLET PO (08:01)
--- NOTE | 2023-04-22 09:24 | PM.PNGS ---
Progress Note: A&P Assessment and Plan (1) Pneumothorax on right: Code(s): J93.9 - Pneumothorax, unspecified Status: Acute Assessment and Plan: Chest x-ray this morning was taken on water seal and showed a moderate right pneumothorax. Patient symptomatic when going down for x-ray. He has an air leak on my exam. Will keep him on suction today and repeat a chest x-ray tomorrow. Plan I have discussed the patient's case and plan of care with Dr. Winn. Subjective Subjective Date/Time Seen: 04/22/23 09:24 Interval history: Patient seen this morning after getting his chest x-ray. He was feeling much better overnight. He reports when coming off wall suction to go down for the chest x-ray this morning, he started to have increasing chest tightness and shortness of breath. This has improved some since being back on suction up in the room. Denies any pulling or tugging on the chest tube during transfer. Exam Const: General: no acute distress and awake Orientation/consciousness: patient oriented x3 Chest: Other: Right-sided chest tube with dressing dry and intact. Air leak with coughing. Chest tube on -20 cm wall suction. Resp: Effort & Inspection: normal respiratory effort Auscultation: diminished lung sounds (R < L) Objective Data Vital Signs Vital Signs: Vital Signs - 24 hr 04/21/23 10:37 04/21/23 10:51 04/21/23 10:58 Temperature 98.2 F Pulse Rate 82 76 Pulse Rate [Left Monitor] Respiratory Rate 16 16 Blood Pressure 161/100 H 202/109 H Blood Pressure [Left Arm] Pulse Oximetry 98 97 93 Oxygen Delivery Room Air Oxygen Flow Rate 04/21/23 11:52 04/21/23 12:50 04/21/23 12:55 Temperature 97.8 F Pulse Rate 78 Pulse Rate [Left Monitor] 72 70 Respiratory Rate 19 17 20 Blood Pressure 191/106 H Blood Pressure [Left Arm] 208/119 H 186/106 H Pulse Oximetry 96 97 100 Oxygen Delivery Nasal Cannula Nasal Cannula Oxygen Flow Rate 2 2 04/21/23 13:30 04/21/23 13:00 04/21/23 13:05 Temperature Pulse Rate Pulse Rate [Left Monitor] 60 87 62 Respiratory Rate 23 H 20 23 H Blood Pressure Blood Pressure [Left Arm] 168/96 H 202/108 H 202/101 H Pulse Oximetry 100 98 97 Oxygen Delivery Nasal Cannula Non-Rebreather Mask Nasal Cannula Oxygen Flow Rate 4 2 4 04/21/23 13:10 04/21/23 13:15 04/21/23 13:45 Temperature Pulse Rate Pulse Rate [Left Monitor] 71 67 60 Respiratory Rate 19 22 H 23 H Blood Pressure Blood Pressure [Left Arm] 182/102 H 188/123 H 176/91 H Pulse Oximetry 100 100 100 Oxygen Delivery Nasal Cannula Nasal Cannula Room Air Oxygen Flow Rate 4 4 04/21/23 14:00 04/21/23 11:19 04/21/23 11:31 Temperature Pulse Rate 76 78 Pulse Rate [Left Monitor] 61 Respiratory Rate 16 18 22 H Blood Pressure 181/103 H 184/105 H Blood Pressure [Left Arm] 191/87 H Pulse Oximetry 100 95 95 Oxygen Delivery Room Air Oxygen Flow Rate 04/21/23 11:46 04/21/23 12:01 04/21/23 12:16 Temperature Pulse Rate 78 76 67 Pulse Rate [Left Monitor] Respiratory Rate 13 15 13 Blood Pressure 191/106 H 187/103 H 187/104 H Blood Pressure [Left Arm] Pulse Oximetry 91 98 100 Oxygen Delivery Oxygen Flow Rate 04/21/23 12:29 04/21/23 12:31 04/21/23 12:36 Temperature Pulse Rate 73 68 72 Pulse Rate [Left Monitor] Respiratory Rate 18 22 H 16 Blood Pressure 184/105 H 194/97 H 186/104 H Blood Pressure [Left Arm] Pulse Oximetry 98 94 99 Oxygen Delivery Oxygen Flow Rate 04/21/23 12:41 04/21/23 12:46 04/21/23 12:58 Temperature Pulse Rate 75 80 Pulse Rate [Left Monitor] Respiratory Rate 13 20 Blood Pressure 203/103 H 208/119 H 186/106 H Blood Pressure [Left Arm] Pulse Oximetry 100 Oxygen Delivery Oxygen Flow Rate 04/21/23 13:01 04/21/23 13:06 04/21/23 13:11 Temperature Pulse Rate 85 61 73 Pulse Rate [Left Monitor] Respiratory Rate 23 H 22 H 19 Blood Pressure 202/108 H 202/101 H 182/102 H B
--- NOTE | 2023-04-22 11:05 | PC.NURSE ---
On 04/22/23, the student, [Chanell Howell], provided care and completed [facility] documentation on this patient. I have reviewed the student's documentation and agree with the findings.
--- NOTE | 2023-04-22 12:48 | PM.IMPN ---
Progress Note: A&P Assessment and Plan (1) Pneumothorax on right: Code(s): J93.9 - Pneumothorax, unspecified Status: Acute Assessment and Plan: Patient presents with increasing shortness of breath and chest tightness the last several days. Large right-sided pneumothorax on x-ray 04/21/2023. May very well be from recent intubation. Surgery consulted for chest tube management. Chest tube placed in ED with repeat imaging showing re-expansion of the right lung and tube in good position. X-ray on 04/22/2023 showed moderate right pneumothorax significantly increased from prior exam. Surgery recommending continuing with current management for now. Repeat chest x-ray tomorrow. (2) Chest pain: Code(s): R07.9 - Chest pain, unspecified Status: Acute Assessment and Plan: Patient complains of chest tightness last couple of days, worse today. Likely related to above though positive history for CAD. Troponin has been negative x2. EKG was without acute ST segment changes. (3) Hypertension: Code(s): I10 - Essential (primary) hypertension Status: Acute Assessment and Plan: Blood pressures have been running high, in the 160s to 190s systolic. Likely related to above. Blood pressures were reviewed from recent hospitalization and they were well controlled at that time. Continue lisinopril 10 mg daily. Hydralazine p.r.n. (4) Benign prostatic hyperplasia: Code(s): N40.0 - Benign prostatic hyperplasia without lower urinary tract symptoms Status: Acute Assessment and Plan: Status post HoLEP 04/07/2023. (5) Chronic kidney disease: Code(s): N18.9 - Chronic kidney disease, unspecified Status: Acute Assessment and Plan: Creatinine is stable on review of previous labs. Subjective Date/time seen: 04/22/23 12:48 Interval history: Patient states that when he went down for his x-ray today that he had some increased pain shortness a breath. I suspect that this is what caused his 2 to be displaced. Surgery recommending continuous suction for today and repeat chest x-ray tomorrow. He does have some chest discomfort but no complaints of shortness of breath. he states that all of his urinary symptoms have resolved and that he is not having difficulty urinary at this time. Will continue to monitor. Exam Narrative: GENERAL: Comfortable, no acute distress HENMT: moist mucous membranes EYES: EOM intact b/l NECK: no lymphadenopathy RESPIRATORY: clear to auscultation CARDIO / CHEST: RRR, right-sided chest tube with dressing dry and intact. GI: soft, nontender, bowel sounds present SKIN: no rashes EXTREMITIES: no edema, redness or tenderness Objective Data Vital Signs Vital Signs: Vital Signs - 24 hr 04/21/23 12:50 04/21/23 12:55 04/21/23 13:30 Temperature 97.8 F Pulse Rate Pulse Rate [Left Monitor] 72 70 60 Respiratory Rate 17 20 23 H Blood Pressure Blood Pressure [Left Arm] 208/119 H 186/106 H 168/96 H Pulse Oximetry 97 100 100 Oxygen Delivery Nasal Cannula Nasal Cannula Nasal Cannula Oxygen Flow Rate 2 2 4 04/21/23 13:00 04/21/23 13:05 04/21/23 13:10 Temperature Pulse Rate Pulse Rate [Left Monitor] 87 62 71 Respiratory Rate 20 23 H 19 Blood Pressure Blood Pressure [Left Arm] 202/108 H 202/101 H 182/102 H Pulse Oximetry 98 97 100 Oxygen Delivery Non-Rebreather Mask Nasal Cannula Nasal Cannula Oxygen Flow Rate 2 4 4 04/21/23 13:15 04/21/23 13:45 04/21/23 14:00 Temperature Pulse Rate Pulse Rate [Left Monitor] 67 60 61 Respiratory Rate 22 H 23 H 16 Blood Pressure Blood Pressure [Left Arm] 188/123 H 176/91 H 191/87 H Pulse Oximetry 100 100 100 Oxygen Delivery Nasal Cannula Room Air Room Air Oxygen Flow Rate 4 04/21/23 12:58 04/21/23 13:01 04/21/23 13:06 Temperature Pulse Rate 80 85 61 Pulse Rate [Left Monitor] Respiratory Rate 20 23 H 22 H Blood Pr
[2023-04-22] MEDS: polyethylene glycoL 3350 17 GM POWD.PACK PO (15:54)
[2023-04-22] MEDS: MORPHINE SULFATE (*CRX) 2 MG/ML INJ IV PUSH (18:32)
[2023-04-22] MEDS: hydrALAZINE HCL 20 MG/ML VIAL 10 MG IV PUSH (20:21)
--- NOTE | 2023-04-22 20:52 | PM.EVENT ---
Event Note Event Note Event Note: Nursing staff called patient's blood pressure was greater than 200 systolic. Patient was requesting his capital project engineer be consulted because they were discussing increasing his antihypertensives as outpatient. The patient's hydralazine was only scheduled q.8 hours. Hydralazine p.r.n. dosing has been adjusted to q.4 hours. I have increased the patient's lisinopril to 20 mg daily the patient has normal creatinine. One extra dose of p.o. lisinopril 10 mg given this evening.
[2023-04-22] MEDS: ZOLPIDEM TARTRATE (*CRX) 5 MG TABLET 10 MG PO (21:36)
[2023-04-23] VITALS (10 sets, daily range): BP systolic 139–159; BP diastolic 84–94; PULSE 56–89; RESP 18; TEMP 36.4–36.6; O2SAT 96–99
[2023-04-23 06:23] LABS: Hematocrit 37.2 % (42.0-52.0); Hemoglobin 11.6 g/dL (14.0-18.0); Mean Corpuscular HGB Conc 31.2 g/dl (32-36); Mean Corpuscular Hemoglobin 31.1 pg (26-34); Mean Corpuscular Volume 99.7 fl (80-100); Mean Platelet Volume 8.1 fl (7.4-10.4); Platelet Count Result 790 k/mm3 (150-375); Red Blood Count 3.73 M/mm3 (4.6-6.20); Red Cell Distribution Width 13.3 % (11.5-14.5)
[2023-04-23 06:32] LABS: Anion Gap 16 mmol/L (8-16); Blood Urea Nitrogen 15 mg/dL (9-20); Calcium 9.1 mg/dL (8.4-10.2); Carbon Dioxide 17 mmol/L (22-30); Chloride 105 mmol/L (98-107); Estimated CRCL calculation 46 ml/min; Estimated Glomerular Filt Rate 59; Glucose 115 mg/dL (65-110); Potassium 3.6 mmol/L (3.4-5.0); Sodium 138 mmol/L (137-145)
--- NOTE | 2023-04-23 07:14 | PM.IMPN ---
Progress Note: A&P Assessment and Plan (1) Pneumothorax on right: Code(s): J93.9 - Pneumothorax, unspecified Status: Acute Assessment and Plan: Patient presents with increasing shortness of breath and chest tightness the last several days. Large right-sided pneumothorax on x-ray 04/21/2023. May very well be from recent intubation. Surgery consulted for chest tube management. Chest tube placed in ED with repeat imaging showing re-expansion of the right lung and tube in good position. X-ray on 04/22/2023 showed moderate right pneumothorax significantly increased from prior exam. Surgery recommending continuing with current management for now. Repeat chest x-ray tomorrow. (2) Chest pain: Code(s): R07.9 - Chest pain, unspecified Status: Acute Assessment and Plan: Patient complains of chest tightness last couple of days, worse today. Likely related to above though positive history for CAD. Troponin has been negative x2. EKG was without acute ST segment changes. (3) Hypertension: Code(s): I10 - Essential (primary) hypertension Status: Acute Assessment and Plan: Blood pressures have been running high, in the 160s to 190s systolic. Likely related to above. Blood pressures were reviewed from recent hospitalization and they were well controlled at that time. Continue lisinopril 10 mg daily. Hydralazine p.r.n. (4) Benign prostatic hyperplasia: Code(s): N40.0 - Benign prostatic hyperplasia without lower urinary tract symptoms Status: Acute Assessment and Plan: Status post HoLEP 04/07/2023. (5) Chronic kidney disease: Code(s): N18.9 - Chronic kidney disease, unspecified Status: Acute Assessment and Plan: Creatinine is stable on review of previous labs. Subjective Date/time seen: 04/23/23 07:14 Interval history: This is a 78 year old male who presented to the hospital on 04/21/23 with complaints of chest tightness and shortness of breath. Chest x-ray revealed a large right-sided pneumothorax resulting in a chest tube placement while in the ER. Of note patient was recently admitted with gross hematuria and difficulties urinating a little over a week ago. He underwent a cystoscopy with clot evacuation and fulguration of bleeding on 04/16/23. He was discharged on 04/18/23 on Cefdinir. On examination today patient, Labs today revealed white blood cell count 13.0, hemoglobin 11.6, hematocrit 37.2, platelet count 790, sodium 138, potassium 3.6, bicarb 17, BUN 15, creatinine 1.2, blood sugars ranging 106-115. Chest x-ray this morning shows right-sided chest tube with possible tiny right apical pneumothorax. Review of Systems Review of Systems: Twelve systems were reviewed and are negative except for as per HPI. Exam Narrative: General: In no acute distress, well nourished Head: atraumatic, no encephalopathy Eyes: EOMI, PERRLA, slcera clear ENT: moist mucous membranes, nasal passages clear Neck: supple, no JVD, no adenopathy, trachea midline Cardiac: Normal S1 and S2. No murmur, gallops or friction rubs, peripheral pulses intact. Respiratory: Lungs clear to auscultation, no adventitious lung sounds Gastrointestinal: soft, non-distended, non-tender, normoactive bowel sounds. : voiding without difficulty. Extremities: moves all extremities well, no edema, good ROM, strength 5/5 Skin: clean, dry, intact. No wounds or lesions. Neuro: Alert and oriented x4, cranial nerves intact, no neuro deficits. Psych: normal mood, normal affect, interactive Objective Data Vital Signs Vital Signs: Vital Signs - 24 hr 04/22/23 08:03 04/22/23 08:03 04/22/23 12:01 Temperature Pulse Rate 62 62 70 Respiratory Rate 17 Blood Pressure Pulse Oximetry 97 Oxygen Delivery Room Air 04/22/23 14:00 04/22/23 16:03 04/22/23 20:39 Temperature 98.4 F 97.6 F Pulse Rate 74 75 67 Respiratory Rate 1
[2023-04-23] MEDS: ATORVASTATIN 40 MG TABLET PO (09:16)
[2023-04-23] MEDS: CEFDINIR 300 MG CAPSULE PO (09:17)
[2023-04-23] MEDS: FERROUS SULFATE 325 MG TABLET DR PO (09:17)
[2023-04-23] MEDS: EZETIMIBE 10 MG TABLET PO (09:17)
[2023-04-23] MEDS: lisinopriL 20 MG TABLET PO (09:17)
[2023-04-23] MEDS: PANTOPRAZOLE 40 MG TABLET PO (09:17)
--- NOTE | 2023-04-23 09:27 | PM.CNCAR ---
Assessment and Plan Assessment and plan (1) Pneumothorax on right: Code(s): J93.9 - Pneumothorax, unspecified Status: Acute Plan 78-year-old man with chronic stable coronary disease no ischemic problems since PCI of his LAD was done in 2009. He is in the hospital now because of the symptomatic right pneumothorax presumably a consequence of recent endotracheal intubation and general anesthesia. This has been treated effectively with placement of chest tube and he is now doing well. In this setting his blood pressure was elevated. Generally speaking his blood pressure has been doing well on 10 mg of lisinopril. It is fine with me that the dosage was increased to 20 mg. At this point I would not recommend any further adjustments in his antihypertensive regimen. Given the current circumstances it is not unexpected that his blood pressure is somewhat higher than baseline. I will ensure that appropriate follow-up in my office is scheduled after this discharge. Huber Cruz MD [facility] History of Present Illness History of Present Illness Consult date/time: 04/23/23 09:27 Reason For Visit: Pneumothorax Narrative: This is a 78-year-old man that I am seeing at his request because of elevated blood pressure. The patient is not in the hospital with cardiac trouble at this time. He is a patient who has had recent urologic surgery with cystoscopy under general anesthesia. He came into the hospital shortly after that discharge short of breath and found to have a large right pneumothorax which is presumed to have occurred as a result of endotracheal intubation. He had a chest tube placed by surgery and he is now hospitalized in room 246 for the last couple of days after his operation. The patient has a history of coronary artery disease with a history of angioplasty and stenting of his LAD back in 2009. He has done very well since then and has been seen in my office for regular follow-up in the intervening years. During an office appointment in October of this year his blood pressure was somewhat elevated and lisinopril was started at 10 mg per day. Since then he states his blood pressure has been reasonably well controlled he checks his blood pressure at home and with obtains readings of 130-150 systolic in general and has not had any other cardiac concerns or complaints he denies any symptoms of chest pain pressure or heaviness orthopnea PND or edema. Following this procedure his blood pressure was elevated at times in the hospital his lisinopril dosage has been advanced to a 20 mg he received I believe the 1st dose of that yesterday. Blood pressure readings today are fine. He is comfortable and his nurses in the room as I came in to see him today. The plan apparently is to water seal his chest tube later today and possibly consider removing it tomorrow. Subsequent follow-up chest x-ray does demonstrate re-expansion of the right lung. Review of Systems Constitutional: Constitutional: Reports no additional constitutional complaints Eyes: Eyes: Reports no additional eye complaints ENT: Reports system reviewed and no additional complaints, except as documented Cardiovascular: Cardiovascular: Reports as per HPI Respiratory: Respiratory: Reports as per HPI Gastrointestinal: Gastrointestinal: Reports no additional gastrointestinal complaints Musculoskeletal: Musculoskeletal: Reports no additional musculoskeletal complaints Integumentary/Breasts: Skin/Breast: Reports system reviewed and no additional complaints, except as docu Neurologic: Reports system reviewed and no additional complaints, except as documented Endocrine: Endocrine: Reports no additional endocrine complaints Hematologic/Lymphatic: Hematologic/Lymphatic: Reports no additional hematologic/lymphatic complaints Allergic/Immunologic: Allergic/Immunologic: Reports no additional allergic/immunologic complaints PMFSH Past Medical History Medical History ([place]
--- NOTE | 2023-04-23 10:17 | PM.PNGS ---
Progress Note: A&P Assessment and Plan (1) Pneumothorax on right: Code(s): J93.9 - Pneumothorax, unspecified Status: Acute Assessment and Plan: Chest x-ray this morning showed improvement of now only a possible tiny right pneumothorax. No air leak. Will put chest tube to water seal. Repeat chest x-ray tomorrow. Plan I have discussed the patient's case and plan of care with Dr. Winn. Subjective Subjective Date/Time Seen: 04/23/23 10:17 Patient reports: no new complaints and feels better Interval history: Patient seen this morning and feeling much better today. After his chest tube was put back to suction yesterday, he reports that his shortness of breath and chest pain gradually resolved. He had issues with hypertension last night and received antihypertensives with improvement in his blood pressure. Denies any chest pain or shortness of breath today. Just has some expected pain at the chest tube site. Chest x-ray this morning showed improvement with now just a tiny right apical pneumothorax. Exam Const: General: no acute distress and awake Chest: Other: Right-sided chest tube with dressing dry and intact. No air leak. Chest tube on -20 cm wall suction. Resp: Effort & Inspection: normal respiratory effort Auscultation: clear to auscultation bilaterally Objective Data Vital Signs Vital Signs: Vital Signs - 24 hr 04/22/23 12:01 04/22/23 14:00 04/22/23 16:03 Temperature 98.4 F Pulse Rate 70 74 75 Respiratory Rate 18 Blood Pressure 171/91 H Pulse Oximetry 98 Oxygen Delivery 04/22/23 20:39 04/22/23 20:20 04/22/23 20:00 Temperature 97.6 F Pulse Rate 67 73 Respiratory Rate 18 Blood Pressure 201/96 H Pulse Oximetry 97 Oxygen Delivery Room Air 04/22/23 21:00 04/23/23 00:04 04/23/23 04:00 Temperature 97.9 F Pulse Rate 73 85 75 Respiratory Rate 20 Blood Pressure 166/88 H Pulse Oximetry 98 Oxygen Delivery 04/23/23 04:56 04/23/23 08:50 Temperature 97.7 F Pulse Rate 77 Respiratory Rate 18 Blood Pressure 159/94 H Pulse Oximetry 97 97 Oxygen Delivery Room Air Intake/Output Intake/Output: Intake & Output 04/20/23 04/21/23 04/22/23 04/23/23 23:59 23:59 23:59 23:59 Intake Total 1000 0 370 Output Total 200 1852 500 Balance 800 -1852 -130 Meds/Results Medications: Active Medications Generic Name Dose Route Start Last Admin Trade Name Freq PRN Reason Stop Dose Admin Acetaminophen 650 mg 04/21/23 16:03 Acetaminophen 325 Mg Tablet PO Q6H PRN Mild Pain (1-3) or Fever Hydrocodone Bitart/Acetaminophen 1 tab 04/21/23 16:03 04/22/23 23:56 Hydrocodone/Acetaminophen (*Crx) 5-325 Mg Tablet PO 1 tab Q6H PRN Administration Pain Rated 4-6 Atorvastatin Calcium 40 mg 04/22/23 09:00 04/23/23 09:16 Atorvastatin 40 Mg Tablet PO 40 mg DAILY ITZEL Administration Ezetimibe 10 mg 04/22/23 09:00 04/23/23 09:17 Ezetimibe 10 Mg Tablet PO 10 mg DAILY ITZEL Administration Ferrous Sulfate 325 mg 04/22/23 09:00 04/23/23 09:17 Ferrous Sulfate [address] PO 325 mg DAILY ITZEL Administration Hydralazine HCl 10 mg 04/22/23 20:52 Hydralazine Hcl 20 Mg/Ml Vial IV PUSH Q4H PRN SBP greater than 180 Lisinopril 20 mg 04/23/23 09:00 04/23/23 09:17 Lisinopril 20 Mg Tablet PO 20 mg DAILY ITZEL Administration Morphine Sulfate 2 mg 04/21/23 16:03 04/22/23 18:32 Morphine Sulfate (*Crx) 2 Mg/Ml Inj IV PUSH 2 mg Q4H PRN Administration Pain Rated 7-10 Ondansetron HCl 4 mg 04/21/23 14:43 Ondansetron Inj 4 Mg/2 Ml Vial IV PUSH Q4H PRN Nausea Pantoprazole Sodium 40 mg 04/22/23 09:00 04/23/23 09:17 Pantoprazole 40 Mg Tablet PO 05/22/23 08:59 40 mg DAILY ITZEL Administration Polyethylene Glycol 17 gm 04/22/23 15:46 04/22/23 15:54 Polyethylene Glycol 3350 17 Gm Powd.Pack PO 17 gm QAM PRN Administration Constip
[2023-04-23] MEDS: HYDROcodone/acetaminophen (*CRX) 5-325 MG TABLET 1 TAB PO ×3 (10:26→23:09)
[2023-04-23 12:16] LABS: Glucose Point of Care 117 mg/dl (65-105)
[2023-04-23] MEDS: ZOLPIDEM TARTRATE (*CRX) 5 MG TABLET 10 MG PO (23:09)
[2023-04-24] VITALS (7 sets, daily range): BP systolic 93–137; BP diastolic 58–88; PULSE 57–100; RESP 16–18; TEMP 36.4–36.9; O2SAT 96–98
[2023-04-24 06:23] LABS: Alanine Aminotransferase 20 U/L (6-50); Albumin Level 3.5 g/dL (3.5-5.1); Alkaline Phosphatase 97 U/L (38-126); Anion Gap 12 mmol/L (8-16); Aspartate Amino Transferase 22 U/L (17-59); Bilirubin,Total 0.6 mg/dL (0.2-1.3); Blood Urea Nitrogen 20 mg/dL (9-20); Calcium 8.9 mg/dL (8.4-10.2); Carbon Dioxide 21 mmol/L (22-30); Chloride 107 mmol/L (98-107); Estimated CRCL calculation 40 ml/min; Estimated Glomerular Filt Rate 49; Glucose 144 mg/dL (65-110); Potassium 3.7 mmol/L (3.4-5.0); Sodium 140 mmol/L (137-145)
--- NOTE | 2023-04-24 07:42 | P.PNIM_ITS ---
Progress Note: A&P Assessment and Plan (1) Pneumothorax on right: Code(s): J93.9 - Pneumothorax, unspecified Status: Acute Assessment and Plan: 04/22/23: * Patient presents with increasing shortness of breath and chest tightness the last several days. * Large right-sided pneumothorax on x-ray 04/21/2023. May very well be from recent intubation. * Surgery consulted for chest tube management. * Chest tube placed in ED with repeat imaging showing re-expansion of the right lung and tube in good position. * X-ray on 04/22/2023 showed moderate right pneumothorax significantly increased from prior exam. * Surgery recommending continuing with current management for now. Repeat chest x-ray tomorrow. 04/23/23: * General surgery following * CXR today revealing small apical pneumothorax * Chest tube to water seal today * Will repeat chest x-ray in morning 04/24/23: * (2) Chest pain: Code(s): R07.9 - Chest pain, unspecified Status: Acute Assessment and Plan: 04/22/23: * Patient complains of chest tightness last couple of days, worse today. Likely related to above though positive history for CAD. * Troponin has been negative x2. * EKG was without acute ST segment changes. 04/23/23: * Reports incisional pain, Continue with pain control. 04/24/23: * (3) Hypertension: Code(s): I10 - Essential (primary) hypertension Status: Acute Assessment and Plan: 04/22/23: * Blood pressures have been running high, in the 160s to 190s systolic. Likely related to above. * Blood pressures were reviewed from recent hospitalization and they were well controlled at that time. * Continue lisinopril 10 mg daily. * Hydralazine p.r.n. 04/23/23: * ?Blood pressures ranging 159/94-201/96, Lisinopril increased to 20 mg overnight, hydralizine PRN q4h * Cardiology following * Continue with current blood pressure management 04/24/23: * (4) Benign prostatic hyperplasia: Code(s): N40.0 - Benign prostatic hyperplasia without lower urinary tract symptoms Status: Acute Assessment and Plan: 04/22/23: * Status post HoLEP 04/07/2023. 11/15/23: * ?BUN 15, Creatinine 1.20, EGFR 59, Creatinine clearance 46 * Recent cystoscopy with clot removal a week ago with Urology * Denies any urinary complaints. 04/24/23: * (5) Chronic kidney disease: Code(s): N18.9 - Chronic kidney disease, unspecified Status: Acute Assessment and Plan: 04/22/23: * Creatinine is stable on review of previous labs. 04/23/23: * ?see above 04/24/23: * Time Spent With Patient Time with patient: Greater than 35 minutes Subjective Date/time seen: 04/24/23 07:42 Interval history: 04/23/23: This is a 78 year old male who presented to the hospital on 04/21/23 with complaints of chest tightness and shortness of breath. Chest x-ray revealed a large right-sided pneumothorax resulting in a chest tube placement while in the ER. Of note patient was recently admitted with gross hematuria and difficulties urinating a little over a week ago. He underwent a cystoscopy with clot evacuation and fulguration of bleeding on 04/16/23. He was discharged on 04/18/23 on Cefdinir. On examination today patient is alert and oriented x4. VSS, he is afebrile, he is currently on room air. He reports incisional pain around the chest tube site
--- NOTE | 2023-04-24 07:42 | PM.IMPN ---
Progress Note: A&P Assessment and Plan (1) Pneumothorax on right: Code(s): J93.9 - Pneumothorax, unspecified Status: Acute Assessment and Plan: 04/22/23: Patient presents with increasing shortness of breath and chest tightness the last several days. Large right-sided pneumothorax on x-ray 04/21/2023. May very well be from recent intubation. Surgery consulted for chest tube management. Chest tube placed in ED with repeat imaging showing re-expansion of the right lung and tube in good position. X-ray on 04/22/2023 showed moderate right pneumothorax significantly increased from prior exam. Surgery recommending continuing with current management for now. Repeat chest x-ray tomorrow. 04/23/23: General surgery following CXR today revealing small apical pneumothorax Chest tube to water seal today Will repeat chest x-ray in morning 04/24/23: (2) Chest pain: Code(s): R07.9 - Chest pain, unspecified Status: Acute Assessment and Plan: 04/22/23: Patient complains of chest tightness last couple of days, worse today. Likely related to above though positive history for CAD. Troponin has been negative x2. EKG was without acute ST segment changes. 04/23/23: Reports incisional pain, Continue with pain control. 04/24/23: (3) Hypertension: Code(s): I10 - Essential (primary) hypertension Status: Acute Assessment and Plan: 04/22/23: Blood pressures have been running high, in the 160s to 190s systolic. Likely related to above. Blood pressures were reviewed from recent hospitalization and they were well controlled at that time. Continue lisinopril 10 mg daily. Hydralazine p.r.n. 04/23/23: ?Blood pressures ranging 159/94-201/96, Lisinopril increased to 20 mg overnight, hydralizine PRN q4h Cardiology following Continue with current blood pressure management 04/24/23: (4) Benign prostatic hyperplasia: Code(s): N40.0 - Benign prostatic hyperplasia without lower urinary tract symptoms Status: Acute Assessment and Plan: 04/22/23: Status post HoLEP 04/07/2023. 04/23/23: ?BUN 15, Creatinine 1.20, EGFR 59, Creatinine clearance 46 Recent cystoscopy with clot removal a week ago with Urology Denies any urinary complaints. 04/24/23: (5) Chronic kidney disease: Code(s): N18.9 - Chronic kidney disease, unspecified Status: Acute Assessment and Plan: 04/22/23: Creatinine is stable on review of previous labs. 04/23/23: ?see above 04/24/23: Time Spent With Patient Time with patient: Greater than 35 minutes Subjective Date/time seen: 04/24/23 07:42 Interval history: 04/23/23: This is a 78 year old male who presented to the hospital on 04/21/23 with complaints of chest tightness and shortness of breath. Chest x-ray revealed a large right-sided pneumothorax resulting in a chest tube placement while in the ER. Of note patient was recently admitted with gross hematuria and difficulties urinating a little over a week ago. He underwent a cystoscopy with clot evacuation and fulguration of bleeding on 04/16/23. He was discharged on 04/18/23 on Cefdinir. On examination today patient is alert and oriented x4. VSS, he is afebrile, he is currently on room air. He reports incisional pain around the chest tube site and received a pain pill recently which has helped alleviate his pain. He has no new complaints today. Labs today revealed white blood cell count 13.0, hemoglobin 11.6, hematocrit 37.2, platelet count 790, sodium 138, potassium 3.6, bicarb 17, BUN 15, creatinine 1.2, blood sugars ranging 106-115.? Chest x-ray this morning shows right-sided chest tube with possible tiny right apical pneumothorax. General surgery placed chest tube to water seal today. He will have another chest x-ray tomorrow. 04/24/23: On examination today patientLabs today revealed Review of
[2023-04-24 08:31] LABS: Basophils Absolute Auto 0.1 K/mm3 (0.0-0.1); Basophils Percent Auto 0.5 % (0.2-1.2); Eosinophils Absolute Auto 0.4 K/mm3 (0-0.3); Hematocrit 33.8 % (42.0-52.0); Hemoglobin 10.6 g/dL (14.0-18.0); Immature Granulocyte Absolute 0.08 K/mm3 (0.00-0.031); Immature Granulocyte Percent A 0.8 % (0-0.5); Lymphocytes Percent Auto 11.6 % (18.3-44.2); Mean Corpuscular HGB Conc 31.4 g/dl (32-36); Mean Corpuscular Hemoglobin 30.9 pg (26-34); Mean Corpuscular Volume 98.5 fl (80-100); Mean Platelet Volume 8.2 fl (7.4-10.4); Monocytes Absolute Auto 0.7 K/mm3 (0.1-0.6); Neutrophils Absolute Auto 7.2 K/mm3 (1.3-6.7); Neutrophils Percent Auto 76.1 % (45.5-73.1); Platelet Count Result 601 k/mm3 (150-375); Red Blood Count 3.43 M/mm3 (4.6-6.20); Red Cell Distribution Width 13.7 % (11.5-14.5); White Blood Count 9.5 K/mm3 (4.5-10.0)
[2023-04-24] MEDS: FERROUS SULFATE 325 MG TABLET DR PO (09:18)
[2023-04-24] MEDS: PANTOPRAZOLE 40 MG TABLET PO (09:19)
[2023-04-24] MEDS: lisinopriL 20 MG TABLET PO (09:19)
[2023-04-24] MEDS: ATORVASTATIN 40 MG TABLET PO (09:19)
[2023-04-24] MEDS: EZETIMIBE 10 MG TABLET PO (09:19)
--- NOTE | 2023-04-24 13:30 | PC.NURSE ---
On 04/24/23, the student, [Justino Redd], provided care and completed [facility] documentation on this patient. I have reviewed the student's documentation and agree with the findings.
--- NOTE | 2023-04-24 14:01 | PM.PNGS ---
Progress Note: A&P Assessment and Plan (1) Pneumothorax on right: Code(s): J93.9 - Pneumothorax, unspecified Status: Acute Assessment and Plan: Chest x-ray with no pneumothorax today. No air leak on exam. Chest tube removed. Will repeat a chest x-ray in 2-3 hours. If this is stable, then the patient can be discharged from our standpoint. F/u only as needed. Discussed restrictions with patient. Plan I have discussed the patient's case and plan of care with Dr. Winn. Subjective Subjective Date/Time Seen: 04/24/23 14:01 Patient reports: no new complaints and feels better Interval history: Patient seen today. Reports feeling even better than he has the last two days, nearly back to baseline. No events overnight or complaints at this time. Exam Const: General: comfortable and no acute distress Orientation/consciousness: patient oriented x3 Chest: Other: Right chest tube in place on water seal with no air leak. The dressing and suture was removed. The chest tube was removed and sterile occlusive dressing applied. Resp: Effort & Inspection: normal respiratory effort Auscultation: clear to auscultation bilaterally Objective Data Vital Signs Vital Signs: Vital Signs - 24 hr 04/23/23 16:00 04/23/23 20:12 04/23/23 20:40 Temperature 97.6 F Pulse Rate 75 56 L Respiratory Rate 18 Blood Pressure 159/90 H Pulse Oximetry 99 Oxygen Delivery Room Air 04/23/23 20:01 04/24/23 00:04 04/24/23 04:00 Temperature Pulse Rate 61 57 L 61 Respiratory Rate Blood Pressure Pulse Oximetry Oxygen Delivery 04/24/23 06:00 04/24/23 09:00 04/24/23 13:05 Temperature 97.6 F Pulse Rate 100 Respiratory Rate 18 Blood Pressure 93/58 L 137/88 Pulse Oximetry 98 Oxygen Delivery Room Air 04/24/23 13:48 Temperature 98.4 F Pulse Rate 72 Respiratory Rate 16 Blood Pressure 126/81 Pulse Oximetry 96 Oxygen Delivery Intake/Output Intake/Output: Intake & Output 04/21/23 04/22/23 04/23/23 04/24/23 23:59 23:59 23:59 23:59 Intake Total 1350 0 770 Output Total 500 9092 925 Balance 397 -3092 -153 Meds/Results Medications: Active Medications Generic Name Dose Route Start Last Admin Trade Name Freq PRN Reason Stop Dose Admin Acetaminophen 650 mg 04/21/23 16:03 Acetaminophen 325 Mg Tablet PO Q6H PRN Mild Pain (1-3) or Fever Hydrocodone Bitart/Acetaminophen 1 tab 04/21/23 16:03 04/23/23 23:09 Hydrocodone/Acetaminophen (*Crx) 5-325 Mg Tablet PO 1 tab Q6H PRN Administration Pain Rated 4-6 Atorvastatin Calcium 40 mg 04/22/23 09:00 04/24/23 09:19 Atorvastatin 40 Mg Tablet PO 40 mg DAILY ITZEL Administration Ezetimibe 10 mg 04/22/23 09:00 04/24/23 09:19 Ezetimibe 10 Mg Tablet PO 10 mg DAILY ITZEL Administration Ferrous Sulfate 325 mg 04/22/23 09:00 04/24/23 09:18 Ferrous Sulfate [address] PO 325 mg DAILY ITZEL Administration Hydralazine HCl 10 mg 04/22/23 20:52 Hydralazine Hcl 20 Mg/Ml Vial IV PUSH Q4H PRN SBP greater than 180 Lisinopril 20 mg 04/23/23 09:00 04/24/23 09:19 Lisinopril 20 Mg Tablet PO 20 mg DAILY ITZEL Administration Morphine Sulfate 2 mg 04/21/23 16:03 04/22/23 18:32 Morphine Sulfate (*Crx) 2 Mg/Ml Inj IV PUSH 2 mg Q4H PRN Administration Pain Rated 7-10 Ondansetron HCl 4 mg 04/21/23 14:43 Ondansetron Inj 4 Mg/2 Ml Vial IV PUSH Q4H PRN Nausea Pantoprazole Sodium 40 mg 04/22/23 09:00 04/24/23 09:19 Pantoprazole 40 Mg Tablet PO 05/22/23 08:59 40 mg DAILY ITZEL Administration Polyethylene Glycol 17 gm 04/22/23 15:46 04/22/23 15:54 Polyethylene Glycol 3350 17 Gm Powd.Pack PO 17 gm QAM PRN Administration Constipation Zolpidem Tartrate 10 mg 04/21/23 20:59 04/23/23 23:09 Zolpidem Tartrate (*Crx) 5 Mg Tablet PO 10 mg HS PRN Administration Insomnia Radiology Results: ITS Impre
--- NOTE | 2023-04-24 14:15 | PM.DS ---
DS: Admitting Diagnosis Discharge Date 04/24/23 Admitting Diagnosis Pneumothorax on the right Chest pain Hypertension BPH Chronic kidney disease DS: Discharge Diagnosis Discharge Diagnosis (1) Pneumothorax on right: Code(s): J93.9 - Pneumothorax, unspecified Status: Acute (2) Chest pain: Code(s): R07.9 - Chest pain, unspecified Status: Acute (3) Hypertension: Code(s): I10 - Essential (primary) hypertension Status: Acute (4) Benign prostatic hyperplasia: Code(s): N40.0 - Benign prostatic hyperplasia without lower urinary tract symptoms Status: Acute (5) Chronic kidney disease: Code(s): N18.9 - Chronic kidney disease, unspecified Status: Acute DS: Summary Hospital Course Reason for hospitalization: Pneumothorax on the right Hospital Course: This is a 78-year-old male presented to hospital 04/21/2023 with complaints chest tightness and shortness breath. Patient was recently hospitalized within the last week gross hematuria and difficulties urinating and underwent a cystoscopy with clot evacuation, fulguration of bleeding, in complex catheter placement under general anesthesia on 04/16/2023. He was discharged home 2 days later on cefdinir. He reported increased chest tightness and shortness of breath that was getting worse over the course of a few days and presented for further workup. Hospital course included chest x-ray which showed a large right-sided pneumothorax. A chest tube was placed in the emergency room today-20 cm suction. General surgery was also consulted for maintenance the chest tube. Yesterday patient tolerated the chest tube to water seal. Today's chest x-ray did not show of his a bowl pneumothorax and General surgery went ahead and pulled the chest tube. Patient denies any shortness of breath, chest pain, fever, chills, nausea, vomiting diarrhea, abdominal pain. His vital signs have been stable, he is room air. and he remains afebrile. Patient denies pain at this time. Labs today reveal white blood cell count 9.5, hemoglobin 10.6, hematocrit 33.8, platelet count 601, sodium 140, potassium 3.7, BUN 20, creatinine 1.4, blood sugars 117-144, liver enzymes normal. Patient had an x-ray 2 hours post chest tube removal which revealed subcutaneous emphysema but no detectable right pneumothorax. Patient stable for discharge at this time. He is to follow-up with his PCP in 1 week. Status at Discharge Cognitive/behavioral status at discharge: Alert oriented x4 Functional status at discharge: independent ambulation Overall status at discharge: patient is progressing back to baseline Time Spent with Patient Time attestation: Total time spent providing and/or coordinating discharge services: Exam Narrative: General: In no acute distress, well nourished, pleasant Head: atraumatic, no encephalopathy Eyes: EOMI, PERRLA, sclera clear ENT: moist mucous membranes, nasal passages clear Neck: supple, no JVD, no adenopathy, trachea midline Cardiac: Normal S1 and S2. No murmur, gallops or friction rubs, peripheral pulses intact. Respiratory: Lungs clear to auscultation, no adventitious lung sounds Gastrointestinal: soft, non-distended, non-tender, normoactive bowel sounds. : voiding without difficulty. Extremities: moves all extremities well, no edema, good ROM, strength 5/5 Skin: Occlusive dressing to right chest wall after chest tube removed. Neuro: Alert and oriented x4, cranial nerves intact, no neuro deficits. Psych: normal mood, normal affect, interactive DS: Data Data Completed and Pending Completed studies during hospitalization: Chest x-rays Pending studies at discharge: None Labs on day of discharge: Labs from last 24 hours 04/24/23 04/24/23 05:55 05:52 WBC 9.5 RBC 3.43 L Hgb 10.6 L Hct 33.8 L MCV 98.5 MCH 30.9 MCHC 31.4 L RDW 13.7 Plt Count 601 H MPV 8.2 Immature Gran % (Auto) 0.8 H Neut % (Auto) 76
== END 2023-04-24 17:45 | disposition home or self-care (01) | DRG 201 ==
LOC: ANHED 14:47 → ANH2MED 15:11
PROVIDERS: Internal Medicine Critical Care Medicine; Physician Assistant; Admitting Provider Internal Medicine; Emergency Provider Physician Assistant; PCP Family Medicine Adolescent Medicine; Visit Provider Nurse Practitioner Acute Care
DX: J95.811 Postprocedural pneumothorax (principal); E78.5 Hyperlipidemia, unspecified; I12.9 Hypertensive chronic kidney disease with stage 1 through stage 4 chronic kidney disease, or unspecified chronic kidney disease; I25.10 Atherosclerotic heart disease of native coronary artery without angina pectoris; K21.9 Gastro-esophageal reflux disease without esophagitis; N18.31 Chronic kidney disease, stage 3a; N40.0 Benign prostatic hyperplasia without lower urinary tract symptoms; Z95.5 Presence of coronary angioplasty implant and graft; Z79.82 Long term (current) use of aspirin; Z79.02 Long term (current) use of antithrombotics/antiplatelets
CPT/HCPCS: 31500; 36415; 36556; 71045; 71046; 80048; 80053; 82948; 83690; 83735; 84484; 85025; 85027; 85380; 85610; 85730; 93005; 96374; 96375; 96376; 99291; A9270; C1729; G0378; J0360; J2250; J2270; J3010; J7030

== ENCOUNTER 2023-05-09 14:21 | Emergency (ER) | payer MEDICARE, SELFPAY ==
--- NOTE | ~2023-05-09 | XR_ITS ---
EXAMINATION: XR chest 2V DATE: 05/09/2023 15:26 INDICATION: Shortness of breath. Recent right pneumothorax with right lung collapse TECHNIQUE: PA and lateral views of the chest were obtained. COMPARISON: Chest radiograph dated 04/24/2023 FINDINGS: The lungs are clear with no focal airspace opacities, pulmonary edema, pleural effusion or pneumothor ax. Unilateral calcified pleural plaques along the posterior left hemidiaphragm which suggests sequel a of prior exudative effusion. Heart and mediastinal silhouette is normal. Moderate degenerative skel etal changes in the spine and at both shoulders. IMPRESSION: 1. No acute cardiopulmonary disease. Reviewed, dictated and finalized at location A. N [facility]PO[facility]
--- NOTE | 2023-05-09 14:27 | ECG_ITS ---
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
[2023-05-09 14:28] VITALS: BP 138/80; PULSE 100; RESP 16; TEMP 36.4; O2SAT 100
[2023-05-09 15:18] LABS: Basophils Percent Auto 0.3 % (0.2-1.2); Eosinophils Absolute Auto 0.1 K/mm3 (0-0.3); Eosinophils Percent Auto 2.2 % (0-4.4); Hematocrit 35.4 % (42.0-52.0); Hemoglobin 10.8 g/dL (14.0-18.0); Immature Granulocyte Absolute 0.02 K/mm3 (0.00-0.031); Immature Granulocyte Percent A 0.3 % (0-0.5); Lymphocytes Percent Auto 15.5 % (18.3-44.2); Mean Corpuscular HGB Conc 30.5 g/dl (32-36); Mean Corpuscular Hemoglobin 30.8 pg (26-34); Mean Corpuscular Volume 100.9 fl (80-100); Mean Platelet Volume 8.8 fl (7.4-10.4); Monocytes Absolute Auto 0.4 K/mm3 (0.1-0.6); Monocytes Percent Auto 7.4 % (2.6-8.5); Neutrophils Absolute Auto 4.3 K/mm3 (1.3-6.7); Neutrophils Percent Auto 74.3 % (45.5-73.1); Platelet Count Result 357 k/mm3 (150-375); Red Blood Count 3.51 M/mm3 (4.6-6.20); Red Cell Distribution Width 14.6 % (11.5-14.5); White Blood Count 5.8 K/mm3 (4.5-10.0)
[2023-05-09 15:28] LABS: Alanine Aminotransferase 22 U/L (6-50); Albumin Level 3.7 g/dL (3.5-5.1); Alkaline Phosphatase 102 U/L (38-126); Anion Gap 8 mmol/L (8-16); Aspartate Amino Transferase 25 U/L (17-59); Bilirubin,Total 0.4 mg/dL (0.2-1.3); Blood Urea Nitrogen 19 mg/dL (9-20); Calcium 8.6 mg/dL (8.4-10.2); Carbon Dioxide 22 mmol/L (22-30); Chloride 108 mmol/L (98-107); Estimated Glomerular Filt Rate 42; Glucose 136 mg/dL (65-110); Potassium 3.8 mmol/L (3.4-5.0); Sodium 138 mmol/L (137-145)
--- NOTE | 2023-05-09 16:12 | PC.NURSE ---
pt A&O x4. Pt stated he was feeling better and did not want to wait for a room.
== END 2023-05-09 16:25 | disposition left against medical advice (07) ==
PROVIDERS: Emergency Provider Student in an Organized Health Care Education/Training Program; PCP Family Medicine Adolescent Medicine
DX: R07.89 Other chest pain (principal)
CPT/HCPCS: 36415; 71046; 80053; 85025; 93005; 99199

== ENCOUNTER 2024-02-08 17:44 | Day surgery (SDC) | payer MEDICARE, SELFPAY ==
[2024-02-08] VITALS (15 sets, daily range): BP systolic 134–173; BP diastolic 73–98; PULSE 63–77; RESP 12–18; TEMP 36.2–37.1; O2SAT 94–100; BMI 27.0
--- NOTE | ~2024-02-08 | CT_ITS ---
EXAMINATION: CT abdomen pelvis wo con DATE: 02/08/2024 18:28 INDICATION: Hematuria TECHNIQUE: Computed tomography (CT) of the abdomen and pelvis was performed with 100 mL Omnipaque-350 intravenous contrast. Automated exposure control and iterative reconstruction technique were employe d. The dose-length product was 553.89 mGy-cm. COMPARISON: 04/16/2023 FINDINGS: Unilateral calcified pleural plaques along the left hemidiaphragm suggests sequela prior exudative ef fusion. Heart size is normal. Catheter scar coronary artery calcifications. No pericardial effusion. Small sliding-type hiatal hernia. Liver, gallbladder, spleen, pancreas and bilateral adrenal glands a re normal. There are few minute density suggesting 1 mm or smaller nonobstructing renal stones at bot h kidneys. No ureteral stones or hydronephrosis. There are a few bladder diverticula. There is marked asymmetry to the prostate which appears small on the right and with nodular enlargement on the left which impresses upon the left base of the bladder. This likely represents sequela of reported prior i ndentation of the prostate. There are few scattered colonic diverticula without adjacent from trace s tranding to suggest diverticulitis. No free intraperitoneal gas or fluid. No pathologically enlarged abdominal or pelvic lymphadenopathy. Mild lumbar levocurvature with severe lumbar and lower thoracic spondylosis. IMPRESSION: 1. A few bladder diverticula likely related to prior prostatomegaly with asymmetric appearance to the prostate likely related to reported prior laser enucleation of the prostate. 2. A few minute 1 mm smaller bilateral nonobstructing renal stones. 3. Small sliding-type hiatal hernia. Reviewed, dictated and finalized at location A. IMPRESSION: 1. A few bladder diverticula likely related to prior prostatomegaly with asymme tric appearance to the prostate likely related to reported prior laser enucleat ion of the prostate. 2. A few minute 1 mm smaller bilateral nonobstructing renal stones. 3. Small sliding-type hiatal hernia.
--- NOTE | ~2024-02-08 | XR_ITS ---
EXAMINATION: XR OR cystogram DATE: 02/08/2024 20:47 INDICATION: Hematuria. Urinary retention. Ureteral stricture. TECHNIQUE: 2 fluoroscopic images of the pelvis were obtained during procedure performed by Dr. Rachel orozco. Radiologist was not present for the imaging or procedure. The amount of fluoroscopy time used dur ing this procedure was 0.3 minutes. COMPARISON: None. FINDINGS/IMPRESSION: Images demonstrates a catheter and wire coiled in the bladder during urologic pr ocedure. See procedure note for further detail. Reviewed, dictated and finalized at location A.
[2024-02-08 18:39] LABS: Basophils Percent Auto 0.3 % (0.2-1.2); Eosinophils Absolute Auto 0.1 K/mm3 (0-0.3); Eosinophils Percent Auto 0.8 % (0-4.4); Hematocrit 37.6 % (42.0-52.0); Hemoglobin 12.2 g/dL (14.0-18.0); Immature Granulocyte Absolute 0.01 K/mm3 (0.00-0.031); Immature Granulocyte Percent A 0.2 % (0-0.5); Lymphocytes Absolute Auto 0.86 K/mm3 (0.9-3.2); Mean Corpuscular HGB Conc 32.4 g/dl (32-36); Mean Corpuscular Hemoglobin 31.5 pg (26-34); Mean Corpuscular Volume 97.2 fl (80-100); Mean Platelet Volume 9.3 fl (7.4-10.4); Monocytes Absolute Auto 0.5 K/mm3 (0.1-0.6); Monocytes Percent Auto 6.8 % (2.6-8.5); Neutrophils Absolute Auto 5.2 K/mm3 (1.3-6.7); Neutrophils Percent Auto 78.9 % (45.5-73.1); Platelet Count Result 286 k/mm3 (150-375); Red Blood Count 3.87 M/mm3 (4.6-6.20); Red Cell Distribution Width 14.1 % (11.5-14.5); White Blood Count 6.6 K/mm3 (4.5-10.0)
[2024-02-08 18:48] LABS: Alanine Aminotransferase 22 U/L (6-50); Alkaline Phosphatase 100 U/L (38-126); Anion Gap 9 mmol/L (4-12); Aspartate Amino Transferase 28 U/L (17-59); Bilirubin,Total 0.6 mg/dL (0.2-1.3); Blood Urea Nitrogen 21 mg/dL (9-20); Calcium 8.9 mg/dL (8.4-10.2); Carbon Dioxide 23 mmol/L (22-30); Chloride 107 mmol/L (98-107); Estimated CRCL calculation 35 ml/min; Estimated Glomerular Filt Rate 42; Glucose 190 mg/dL (65-110); Potassium 3.7 mmol/L (3.4-5.0); Sodium 139 mmol/L (137-145)
[2024-02-08 18:54] LABS: Partial Thromboplastin Time 25.3 Seconds (22.3-36.8); Prothrombin Time 13.3 Seconds (11.1-14.7)
--- NOTE | 2024-02-08 19:26 | ED.MALEGU ---
HPI - Male Genitourinary General Chief complaint: Urogenital-Male Stated complaint: sent from PCP for urinary retention Time Seen by Provider: 02/08/24 18:06 Source: patient Mode of arrival: ambulatory Limitations: no limitations History of Present Illness HPI Narrative: Patient is a 78-year-old male, with PMH of CAD, CKD who presents to the ED with report of hematuria. Patient reports he developed gross hematuria yesterday. States he was passing clots initially. Was only able to dribble out small amounts of urine. Began having some discomfort throughout his lower abdomen today with continued difficulty urinating. Contacted his urologist, Dr. Lucio, and was referred to the ED for further evaluation. Patient underwent prostate surgery last March and had an episode of hematuria/difficulty urinating in April. Required catheterization at that time. Patient denies nausea, vomiting, fevers. Patient is on plavix/aspirin Related Data Home Medications Medication Instructions Recorded Confirmed atorvastatin 40 mg tablet 40 mg PO DAILY 12/20/19 01/14/24 cholecalciferol (vitamin D3) 25 25 mcg PO DAILY 12/20/19 01/14/24 mcg (1,000 unit) tablet clopidogrel 75 mg tablet (Plavix) 75 mg PO DAILY 12/20/19 01/14/24 ezetimibe 10 mg tablet 10 mg PO DAILY 12/20/19 01/14/24 lisinopril 10 mg tablet 10 mg PO DAILY 04/17/23 01/14/24 zolpidem 10 mg tablet 10 mg PO HS PRN Insomnia 04/21/23 01/14/24 aspirin 81 mg tablet,delayed 81 mg PO DAILY 01/14/24 01/14/24 release (Adult Low Dose Aspirin) Allergies Allergy/AdvReac Type Severity Reaction Status Date / Time No Known Allergies Allergy Unknown Verified 02/08/24 17:44 Review of Systems Review of Systems: All systems reviewed & are unremarkable except as noted in HPI. All systems reviewed & are unremarkable except as noted in HPI and below PMFSH Past Medical History Medical History Benign prostatic hyperplasia Chronic kidney disease, stage 3a Surgical History Surgical History History of placement of stent in LAD coronary artery (2010) History of prostate surgery 04/07/23 HoLEP. 04/16/23 cystoscopy with clot evacuation, fulguration of bleeding, and complex catheter placement. Family History Family History Other Asthma Sibling Heart disease Other Colon polyp Social History Social History Social History: Surrogate medical decision maker: Simran Moreno, spouse. Code status: Full code. Smoking status: Never smoker Second hand tobacco smoke exposure: No Alcohol intake: never Substance use: never Substance use type: does not use Do You Feel Safe in your Home?: Yes Lack of Transportation: No Lack of Food: Never True Current Housing: I Have Housing Concerned About Future Housing: No Difficulty Paying Gas/Electric Bills: No Difficulty Paying for Meds: No Currently Unemployed: No Education: Master's Degree or Higher Difficulty w/ Childcare or Family Care: No Living arrangements: with family Additional living arrangements comments: Lives with spouse in [place]. 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 Spiritual care concerns: No Agree to blood products: Yes Exam Narrative: GENERAL: Elderly, well-nourished, non-toxic, in no acute distress. HEAD: Normocephalic, atraumatic. RESPIRATORY: Airway patent, respirations nonlabored. Clear to auscultation bilaterally, no rales, rhonchi, wheezing. CARDIOVASCULAR: Regular rate and rhythm ABDOMINAL: Soft, mild discomfort throughout lower abdomen, nondistended. Normoactive BS. MUSCULOSKELETAL: Moves all extremities. No gross deformities. SKIN: Warm, dry, normal color. NEURO: A&O X3. S
--- NOTE | 2024-02-08 19:40 | PM.IMHP ---
H&P: HPI History of Present Illness Date/Time: 02/08/24 19:40 Chief Complaint: Hematuria with small clot passage and urinary retention Narrative: Kelechi is a pleasant 78-year-old male well known to me. He had a procedure done either in March which consisted of a holmium laser enucleation of his prostate by my partner Dr. Matamoros. He had an episode of clot retention after that about a week later. He was doing well up until today when he noticed some small clots passing and then difficulty voiding. He presented to the emergency room. Bladder scan revealed greater than [address] scan reveals an asymmetric prominent left lobe of the prostate. There was no discrete mention of clots in the bladder. I attempted to place a Orta in the emergency room to drain his bladder but was unsuccessful. We thus or proceeding with cysto with Orta catheter placement possible clot evacuation in the operating this evening. Review of Systems Review of Systems: All systems reviewed & are unremarkable except as noted in HPI and below PMFSH Past Medical History Medical History Benign prostatic hyperplasia Chronic kidney disease, stage 3a Surgical History Surgical History History of placement of stent in LAD coronary artery (2010) History of prostate surgery 04/07/23 HoLEP. 04/16/23 cystoscopy with clot evacuation, fulguration of bleeding, and complex catheter placement. Family History Family History Other Asthma Sibling Heart disease Other Colon polyp Social History Social History Social History: Surrogate medical decision maker: Simran Moreno, spouse. Code status: Full code. Smoking status: Never smoker Second hand tobacco smoke exposure: No Alcohol intake: never Substance use: never Substance use type: does not use Do You Feel Safe in your Home?: Yes Lack of Transportation: No Lack of Food: Never True Current Housing: I Have Housing Concerned About Future Housing: No Difficulty Paying Gas/Electric Bills: No Difficulty Paying for Meds: No Currently Unemployed: No Education: Master's Degree or Higher Difficulty w/ Childcare or Family Care: No Living arrangements: with family Additional living arrangements comments: Lives with spouse in [place]. 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 Spiritual care concerns: No Agree to blood products: Yes Meds Home Medications and Allergies Home Medications Medication Instructions Recorded Confirmed Type atorvastatin 40 mg tablet 40 mg PO DAILY 12/20/19 01/14/24 History cholecalciferol (vitamin D3) 25 25 mcg PO DAILY 12/20/19 01/14/24 History mcg (1,000 unit) tablet clopidogrel 75 mg tablet (Plavix) 75 mg PO DAILY 12/20/19 01/14/24 History ezetimibe 10 mg tablet 10 mg PO DAILY 12/20/19 01/14/24 History lisinopril 10 mg tablet 10 mg PO DAILY 04/17/23 01/14/24 History zolpidem 10 mg tablet 10 mg PO HS PRN Insomnia 04/21/23 01/14/24 History esomeprazole magnesium 40 mg 40 mg PO DAILY #90 caps 07/21/23 01/14/24 Rx capsule,delayed release aspirin 81 mg tablet,delayed 81 mg PO DAILY 01/14/24 01/14/24 History release (Adult Low Dose Aspirin) Allergies Allergy/AdvReac Type Severity Reaction Status Date / Time No Known Allergies Allergy Unknown Verified 02/08/24 17:44 Vital Signs Vital Signs - 24 hr 02/08/24 17:53 02/08/24 19:29 Temperature 36.6 C 37.1 C Pulse Rate 76 63 Respiratory Rate 16 17 Blood Pressure 164/86 H 173/98 H Pulse Oximetry 100 98 Exam Const: General: cooperative and comfortable Resp: Effort & Inspection: normal respiratory effort Cardio: Rate: regular rate Rhythm: regular rhythm GI:
--- NOTE | 2024-02-08 19:43 | WPDHPUPDATE1 ---
History and Physical Update Update Date/Time: 02/08/24 19:43 History and Physical has been reviewed, including an updated exam of the patient. There are NO changes in the patient's condition. Risks, benefits, and alternatives have been discussed and questions answered. Patient agrees to proceed with procedure.
--- NOTE | 2024-02-08 19:44 | WPDANESEPPF ---
Anes - Initial Pre Proc Eval Procedure: Operation Date: 02/08/24 20:30 Proposed Procedures p Cystoscopy, Evacuation Bladder Clots - Jeffrey Lucio MD Date/Time: 02/08/24 19:44 Surgeon: Jeffrey Lucio MD Pre Op Diagnosis: sent from PCP for urinary retention Patient Data Age: 78 Gender: M Height: 1.75 m Weight: 79 kg Last Vital Signs Temp 98.7 F 02/08/24 19:29 Pulse 63 02/08/24 19:29 Resp 17 02/08/24 19:29 BP 173/98 H 02/08/24 19:29 Pulse Ox 98 02/08/24 19:29 Allergies Allergy/AdvReac Type Severity Reaction Status Date / Time No Known Allergies Allergy Unknown Verified 02/08/24 17:44 Home Medications Medication Instructions Recorded Confirmed Type atorvastatin 40 mg tablet 40 mg PO DAILY 12/20/19 01/14/24 History cholecalciferol (vitamin D3) 25 25 mcg PO DAILY 12/20/19 01/14/24 History mcg (1,000 unit) tablet clopidogrel 75 mg tablet (Plavix) 75 mg PO DAILY 12/20/19 01/14/24 History ezetimibe 10 mg tablet 10 mg PO DAILY 12/20/19 01/14/24 History lisinopril 10 mg tablet 10 mg PO DAILY 04/17/23 01/14/24 History zolpidem 10 mg tablet 10 mg PO HS PRN Insomnia 04/21/23 01/14/24 History esomeprazole magnesium 40 mg 40 mg PO DAILY #90 caps 07/21/23 01/14/24 Rx capsule,delayed release aspirin 81 mg tablet,delayed 81 mg PO DAILY 01/14/24 01/14/24 History release (Adult Low Dose Aspirin) Laboratory Tests 02/08/24 18:31 WBC 6.6 K/mm3 (4.5-10.0) RBC 3.87 L M/mm3 (4.6-6.20) Hgb 12.2 L g/dL (14.0-18.0) Hct 37.6 L % (42.0-52.0) MCV 97.2 fl (80-100) MCH 31.5 pg (26-34) MCHC 32.4 g/dl (32-36) RDW 14.1 % (11.5-14.5) Plt Count 286 k/mm3 (150-375) MPV 9.3 fl (7.4-10.4) Immature Gran % (Auto) 0.2 % (0-0.5) Neut % (Auto) 78.9 H % (45.5-73.1) Lymph % (Auto) 13.0 L % (18.3-44.2) [place] % (Auto) 6.8 % (2.6-8.5) Eos % (Auto) 0.8 % (0-4.4) Baso % (Auto) 0.3 % (0.2-1.2) Lymph # (Auto) 0.86 L K/mm3 (0.9-3.2) [place] # (Auto) 0.5 K/mm3 (0.1-0.6) Eos # (Auto) 0.1 K/mm3 (0-0.3) Baso # (Auto) 0.0 K/mm3 (0.0-0.1) Abs Immat Gran (auto) 0.01 K/mm3 (0.00-0.031) Absolute Neuts (auto) 5.2 K/mm3 (1.3-6.7) Absolute Nucleated RBC 0.000 K/mm3 (0.0-0.012) Nucleated RBC % 0.0 % (0.0-0.2) PT 13.3 Seconds (11.1-14.7) INR 1.0 APTT 25.3 Seconds (22.3-36.8) Sodium 139 mmol/L (137-145) Potassium 3.7 mmol/L (3.4-5.0) Chloride 107 mmol/L (98-107) Carbon Dioxide 23 mmol/L (22-30) Anion Gap 9 mmol/L (4-12) BUN 21 H mg/dL (9-20) Creatinine 1.60 H mg/dL (0.7-1.3) Estim Creat Clear Calc 35 ml/min Estimated GFR 42 L (59 - ) Glucose 190 H mg/dL (65-110) Calcium 8.9 mg/dL (8.4-10.2) Total Bilirubin 0.6 mg/dL (0.2-1.3) AST 28 U/L (17-59) ALT 22 U/L (6-50) Alkaline Phosphatase 100 U/L (38-126) Total Protein 7.0 g/dL (6.3-8.2) Albumin 4.0 g/dL (3.5-5.1) Patient hx anesthesia problems: other (Reported PTX after GA in the past, pt reports it was not ever deemed secondary to GA here (chart reviewed and pt had GA w LMA). ) Family hx anesthesia problems: none Results Review: All pre-operative results and documents have been reviewed as part of the pre-operative evaluation. [facility] Past Medical History Medical History Benign prostatic hyperplasia Chronic kidney disease, stage 3a Surgical History Surgical History History of placement of stent in LAD coronary artery (2010) History of prostate surgery 04/07/23 HoLEP. 04/16/23 cystoscopy with clot evacuation, fulguration of bleeding, and complex catheter placement. Family History Family History Other Asthma Sibling
[2024-02-08] MEDS: ceFAZolin 2 GM/D5W 50 ML 2 GM/50 ML BAG IVPB (19:49)
[2024-02-08] MEDS: LIDOCAINE HCL 2% GEL UROJET 10 ML PKG MUCOUS MEM (20:02)
--- NOTE | 2024-02-08 20:32 | W.PM.PROC2 ---
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 Flexible ureteral scope somehow was manipulated through this area into the bladder. He had a bladder neck contracture in addition. Description of Procedure Patient was taken the operative suite correctly identified. Once anesthesia was obtained was placed in dorsal lithotomy position and prepped draped usual sterile fashion 19 [place] scope was inserted into the urethra. There were no urethral strictures. Once I saw the vera to there was a clot and prostatic tissue from the left lobe crossing. At this point I could not see a discrete opening with a 19 [place] scope. I then switched out to a flexible ureteral scope and some home by following anteriorly was able to manipulate the ureteral scope into the bladder. I then used amplants dilators to dilate up to 22 [place]. The cystoscope was then reinserted into the bladder under direct vision. He had asymmetric lobe somewhat pushing into the bladder. The left side was more prominent. The normal anatomy was obviously distorted from his prior procedure. Upon removing the scope it was noted that there was very friable tissue. I then used a cold cup to biopsy some of this tissue which almost had a papillary appearance. I fulgurated the tissue that was biopsied. 2% viscous lidocaine was then inserted into the urethra to 20 [place] tip was placed. He was taken recovery stable condition. He will be discharged home with Orta catheter. I will discuss this with Dr. Matamoros. This completes dictation. Please send copy of op note to my office Estimated Blood Loss 0 Urine Output 10 Drains Yes Packing No Pathology Yes Complications No immediate complications Condition Stable Disposition PACU
[2024-02-08] MEDS: LACTATED RINGERS 1,000 ML 30 ML IV CONT (20:37)
[2024-02-08] MEDS: fentaNYL CITRATE INJ (*CRX) 100 MCG/2 ML VIAL 25 MCG IV PUSH ×9 (21:10→21:40)
[2024-02-08] MEDS: HYDROmorphone HCL INJ (*CRX) 1 MG/ML SYR 0.25 MG IV PUSH ×9 (21:50→22:48)
[2024-02-08] MEDS: HYDROcodone/acetaminophen (*CRX) 5-325 MG TABLET 1 TAB PO (23:51)
[2024-02-08] MEDS: DEXTROSE 5%/LACTATED RINGERS 1,000 ML 125 ML IV CONT (23:51)
[2024-02-09 00:08] VITALS: BMI 27.0
[2024-02-09 00:45] VITALS: BP 151/77; PULSE 72; RESP 18; TEMP 36.8; O2SAT 95
[2024-02-09] MEDS: ceFAZolin 1 GM/NS 50 ML 1 GM/50 ML BAG IVPB ×2 (04:10→12:42)
[2024-02-09 04:33] VITALS: BP 161/86; PULSE 71; RESP 16; TEMP 36.3; O2SAT 98
[2024-02-09 08:45] VITALS: BP 158/74; PULSE 68; RESP 16; TEMP 36.4; O2SAT 97
--- NOTE | 2024-02-09 12:35 | WPDUROPN2 ---
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 Will discharge home with Orta catheter never removed with cystoscopy week from today. Will have office schedule that appointment. Scripts for Bactrim and tramadol sent to his pharmacy. (2) Gross hematuria: Code(s): R31.0 - Gross hematuria Status: Acute Assessment and Plan: Resolving with catheter Subjective Subjective Date/Time Seen: 02/09/24 12:35 Post Op day: 1 (Cystoscopy with urethral dilatation and Orta catheter placement) Principal diagnosis: Urinary retention with hematuria Interval history: Kelechi is feeling better today. His urine is pink in nature. Have discussed the findings with the bladder neck contracture. He also has what appears to be residual prostatic tissue but this may not be as much of an issue. Will discharge home with Orta catheter and have it removed with a cystoscopy in my office a week from today. Scripts sent to pharmacy. Review of Systems Review of Systems: All systems reviewed & are unremarkable except as noted in HPI and below Exam Const: General: cooperative and comfortable Resp: Effort & Inspection: normal respiratory effort Cardio: Rate: regular rate Rhythm: regular rhythm Objective Data Vital Signs Vital Signs: Vital Signs - 24 hr 02/08/24 17:53 02/08/24 19:29 02/08/24 20:37 Temperature 36.6 C 37.1 C 36.2 C L Pulse Rate 76 63 77 Respiratory Rate 16 17 14 Blood Pressure 164/86 H 173/98 H 142/74 H Pulse Oximetry 100 98 100 Oxygen Delivery Simple Face Mask Oxygen Flow Rate 8 02/08/24 20:50 02/08/24 21:05 02/08/24 21:20 Temperature Pulse Rate 70 66 70 Respiratory Rate 12 12 13 Blood Pressure 153/83 H 146/75 H 145/79 H Pulse Oximetry 100 100 98 Oxygen Delivery Simple Face Mask Simple Face Mask Room Air Oxygen Flow Rate 8 8 02/08/24 21:35 02/08/24 21:50 02/08/24 22:05 Temperature Pulse Rate 67 64 63 Respiratory Rate 16 14 18 Blood Pressure 144/78 H 147/80 H 135/75 Pulse Oximetry 100 97 100 Oxygen Delivery Room Air Room Air Room Air Oxygen Flow Rate 02/08/24 22:20 02/08/24 22:37 02/08/24 22:50 Temperature Pulse Rate 66 67 75 Respiratory Rate 12 18 13 Blood Pressure 137/80 139/77 136/77 Pulse Oximetry 99 97 94 Oxygen Delivery Room Air Room Air Room Air Oxygen Flow Rate 02/08/24 23:10 02/08/24 23:25 02/08/24 23:45 Temperature 36.8 C 36.6 C 36.6 C Pulse Rate 71 77 71 Respiratory Rate 16 16 18 Blood Pressure 143/73 H 155/78 H 134/74 Pulse Oximetry 96 97 97 Oxygen Delivery Oxygen Flow Rate 02/08/24 23:45 02/09/24 00:45 02/09/24 04:33 Temperature 36.8 C 36.3 C L Pulse Rate 71 72 71 Respiratory Rate 18 18 16 Blood Pressure 151/77 H 161/86 H Pulse Oximetry 97 95 98 Oxygen Delivery Room Air Oxygen Flow Rate 02/09/24 08:45 02/09/24 09:45 Temperature 36.4 C Pulse Rate 68 Respiratory Rate 16 Blood Pressure 158/74 H Pulse Oximetry 97 Oxygen Delivery Room Air Oxygen Flow Rate Intake/Output Intake/Output: Intake & Output 02/06/24 02/07/24 02/08/24 02/09/24 23:59 23:59 23:59 23:59 Intake Total 350 0 Output Total 570 400 Balance -220 -400 Meds/Results Medications: Active Medications Generic Name Dose Route Start Last Admin Trade Name Freq PRN Reason Stop Dose Admin Hydrocodone Bitart/Acetaminophen 1 tab 02/08/24 23:00 02/08/24 23:51 Hydrocodone/Acetaminophen (*Crx) 5-325 Mg Tablet PO 1 tab Q4H PRN Administration Pain Rated 1-6 Cephalexin HCl 500 mg 02/09/24 18:00 Cephalexin 500 Mg Capsule PO Q6HR ITZEL Docusate Sodium 100 mg 02/09/24 09:00 02/09/24 10:09 Docusate Sodium 100 Mg Capsule PO Not Given Q12HR ITZEL Hyoscyamine 0.125 mg 02/08/24 23:00 Hyoscyamine Sulfate 0.125
--- NOTE | 2024-02-09 12:39 | PM.DS ---
DS: Admitting Diagnosis Discharge Date 02/09/2024 Admitting Diagnosis Urinary retention with hematuria DS: Discharge Diagnosis Discharge Diagnosis (1) Urinary retention: Code(s): R33.9 - Retention of urine, unspecified Status: Acute Assessment and Plan: Discharged home with Orta catheter. Plan to remove in 1 week with cystoscopy (2) Gross hematuria: Code(s): R31.0 - Gross hematuria Status: Acute Assessment and Plan: Resolved DS: Summary Hospital Course Reason for hospitalization: Patient presented to the emergency room with urinary retention and some hematuria. He was taken to the operating room after inability to place Orta in the ER. He was found to have some residual prostatic tissue on the left with a P bladder neck contracture. He was dilated and a Councill tip catheter was placed. He will be discharged home with Orta catheter. Hospital Course: See above Time Spent with Patient Time attestation: Total time spent providing and/or coordinating discharge services: DS: Data Data Completed and Pending Pending studies at discharge: Pending at discharge 02/08/24 20:26 Surgical [PTH] Routine Labs on day of discharge: Labs from last 24 hours 02/08/24 18:31 WBC 6.6 RBC 3.87 L Hgb 12.2 L Hct 37.6 L MCV 97.2 MCH 31.5 MCHC 32.4 RDW 14.1 Plt Count 286 MPV 9.3 Immature Gran % (Auto) 0.2 Neut % (Auto) 78.9 H Lymph % (Auto) 13.0 L [place] % (Auto) 6.8 Eos % (Auto) 0.8 Baso % (Auto) 0.3 Lymph # (Auto) 0.86 L [place] # (Auto) 0.5 Eos # (Auto) 0.1 Baso # (Auto) 0.0 Abs Immat Gran (auto) 0.01 Absolute Neuts (auto) 5.2 Absolute Nucleated RBC 0.000 Nucleated RBC % 0.0 PT 13.3 INR 1.0 APTT 25.3 Sodium 139 Potassium 3.7 Chloride 107 Carbon Dioxide 23 Anion Gap 9 BUN 21 H Creatinine 1.60 H Estim Creat Clear Calc 35 Estimated GFR 42 L Glucose 190 H Calcium 8.9 Total Bilirubin 0.6 AST 28 ALT 22 Alkaline Phosphatase 100 Total Protein 7.0 Albumin 4.0 Discharge Plan Discharge Patient Disposition: Home, Self-Care Discharge Instructions: Discharged home when awake and alert. Antibiotic script sent to his pharmacy. Discharged home with Orta catheter. Stand Alone Forms: General Discharge Instructions Discharge Medications: New sulfamethoxazole-trimethoprim [Bactrim DS] 800-160 mg tablet 1 tablet PO Q12H Qty: 6 0RF tramadol 50 mg tablet 50 mg PO Q6H PRN (Reason: pain) Qty: 20 0RF Continued aspirin [Adult Low Dose Aspirin] 81 mg tablet,delayed release (DR/EC) 81 mg PO DAILY atorvastatin 40 mg Tablet 40 mg PO DAILY clopidogrel [Plavix] 75 mg Tablet 75 mg PO DAILY ezetimibe 10 mg Tablet 10 mg PO DAILY cholecalciferol (vitamin D3) 25 mcg (1,000 unit) Tablet 25 mcg PO DAILY lisinopril 10 mg tablet 10 mg PO DAILY zolpidem 10 mg tablet 10 mg PO HS PRN (Reason: Insomnia) esomeprazole magnesium 40 mg capsule,delayed release(DR/EC) 40 mg PO DAILY Qty: 90 2RF
== END 2024-02-09 13:35 | disposition home or self-care (01) ==
LOC: ANHED 18:13 → ANHSURGERY 19:18 → ANH2MED 23:02
PROVIDERS: Emergency Provider Physician Assistant; PCP Family Medicine Adolescent Medicine; Visit Provider Urology
PROC: 0TCB8ZZ Extirpation of Matter from Bladder, Via Natural or Artificial Opening Endoscopic (ICD-10-PCS; CPT 52001; principal; 2024-02-08 20:30)
DX: N40.1 Benign prostatic hyperplasia with lower urinary tract symptoms (principal); R31.0 Gross hematuria; R33.9 Retention of urine, unspecified; N32.0 Bladder-neck obstruction; N18.31 Chronic kidney disease, stage 3a; Z95.5 Presence of coronary angioplasty implant and graft; Z79.02 Long term (current) use of antithrombotics/antiplatelets; Z79.82 Long term (current) use of aspirin
CPT/HCPCS: 55899; 36415; 74176; 74430; 80053; 85025; 85610; 85730; 99285; A9270; C1726; G0416; J0360; J0690; J1100; J1170; J2405; J2704; J3010; J7120; J7121; Q9966

== ENCOUNTER 2024-12-07 10:54 | Emergency (ER) | payer MEDICARE, SELFPAY ==
--- NOTE | ~2024-12-07 | XR_ITS ---
EXAMINATION: [id number] DATE: 12/07/2024 11:27 INDICATION: Lateral lower left rib pain and bruising post fall TECHNIQUE: A frontal inspiratory view of the chest and 3 views of the left ribs were obtained. COMPARISON: Chest radiograph dated 05/09/23 FINDINGS: No rib fractures identified. Calcified pleural plaque along the left hemidiaphragm. Calcified nodules at the right apex and medial left lung base consistent with old granulomatous disease. No other airs pace opacities, pulmonary edema, pleural effusion or pneumothorax. Heart size is normal. Mild lumbar levoscoliosis with moderate spondylosis. Moderate to severe lower thoracic spondylosis. IMPRESSION: 1. No rib fracture or acute cardiopulmonary disease. Reviewed, dictated and finalized at location B.
[2024-12-07 11:01] VITALS: BP 158/86; PULSE 50; RESP 20; TEMP 36.4; O2SAT 100
--- NOTE | 2024-12-07 11:43 | ED_ITS ---
HPI - Fall General Chief Complaint: Fall Stated Complaint: fall Time Seen by Provider: 12/07/24 11:00 Source: patient and RN notes reviewed Mode of arrival: ambulatory Limitations: no limitations History of Present Illness HPI Narrative: 79-year-old male presents [facility] complaining of fall yesterday. Patient said [place] in [place] said [place] he felt wobbly and lost his footing and fell landing on his left side. Patient denies any loss of consciousness, head is head, neck pain, or back pain. Patient denies feeling dizzy or lightheaded prior to falling. Patient is complaining of left lower rib pain and bruising. Patient states the pain is worse when he lays flat or takes a deep breath. Patient denies any abdominal pain, nausea, vomiting diarrhea, bloody stools vomiting blood, vision changes, headaches, or any other symptoms. Patient took Advil last night to help with symptoms. Patient does report he takes Plavix and a baby aspirin daily. Related Data Home Medications ?Medication ?Instructions ?Recorded ?Confirmed ?Last Taken ?Type atorvastatin 40 mg tablet 40 mg PO DAILY 12/20/19 07/22/24 Unknown History cholecalciferol (vitamin D3) 25 25 mcg PO DAILY 12/20/19 07/22/24 Unknown History mcg (1,000 unit) tablet clopidogrel 75 mg tablet (Plavix) 75 mg PO DAILY 12/20/19 07/22/24 Unknown History ezetimibe 10 mg tablet 10 mg PO DAILY 12/20/19 07/22/24 Unknown History aspirin 81 mg tablet,delayed 81 mg PO DAILY 01/14/24 07/22/24 Unknown History release (Adult Low Dose Aspirin) amlodipine 5 mg tablet (Norvasc) 5 mg PO DAILY 07/14/24 07/22/24 Unknown History lisinopril 20 mg tablet 20 mg PO DAILY 07/14/24 07/22/24 Unknown History isosorbide mononitrate 30 mg 30 mg PO DAILY 07/22/24 07/22/24 Unknown History tablet,extended release 24 hr Allergies Allergy/AdvReac Type Severity Reaction Status Date / Time No Known Allergies Allergy Unknown Verified 12/07/24 10:55 Review of Systems Review of Systems: CONSTITUTIONAL: Denies fever, chills, or sweats. EYES: Denies visual changes, blurry vision, redness, or discharge. ENT: Denies rhinorrhea, congestion, sore throat, or otalgia. CARDIOVASCULAR: Denies chest pain, palpitations, dizziness, lightheadedness, edema. RESPIRATORY: Denies cough or dyspnea. GASTROINTESTINAL: Denies abdominal pain, nausea, vomiting, or diarrhea. GENITOURINARY: Denies dysuria or hematuria. SKIN: Denies rash or itching. MUSCULOSKELETAL: Denies back pain, joint pain, or myalgia. Positive for left rib pain. NEUROLOGIC: Denies headache, numbness, focal weakness, seizures, loss consciousness, or weakness. PSYCHIATRIC: Denies anxiety or depression. All other systems reviewed are negative, except as documented in HPI. [facility] Past Medical History Medical History (Updated 12/07/24 @ 12:25 by Jonathon Byrd APRN) Contusion of rib on left side Benign prostatic hyperplasia Chronic kidney disease, stage 3a Surgical History Surgical History History of prostate surgery 04/07/23 HoLEP. 04/16/23 cystoscopy with clot evacuation, fulguration of bleeding, and complex catheter placement. History of placement of stent in LAD coronary artery (2010) Family History Family History Other Asthma Sibling Heart disease Other Colon polyp Social History Social History Social History: Surrogate medical decision maker: Simran Graciaall, spouse. Code status: Full code. Smoking status: Never smoker Second hand tobacco smoke exposure: No Alcohol intake: never Substance use: never Substance use type: does not use Do You Feel Safe in your Home?: Yes Lack of Transportation: No Lack of Food: Never True Current Housing: I Have Housing Concerned About Future Housing: No Difficulty Paying Gas/Electric Bills: No Difficulty Paying for Meds: No Currently Unemployed: No Education: Master's Degree or Higher Difficulty w/ Childcare or Family Care: No Living arrangements: with family Additional living arrangements comments: Lives with spouse in [place]. 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 Spiritual care concerns: No Agree to blood products: Yes Comments At the time of my signature, I reviewed and agree with the nursing past medical, surgical, social, and family history. There is no relevant family history pertinent to the patient complaint. Exam Narrative: GENERAL: This is a well-nourished, well-developed adult, in no apparent distress. They are non ill-appearing, nontoxic appearing. HEAD: normocephalic, atraumatic. No raccoon eyes or Casas signs. EYES: Sclera clear/white. Conjunctiva normal. Vision is grossly intact. Extraocular movements intact. Pupils PERRLA. No subconjunctival hemorrhage or hyphema. EARS: External ears normal,. Hearing grossly intact. NOSE: External nose normal THROAT: Mucous membranes moist, NECK: Neck supple, non-tender without lymphadenopathy, masses or thyromegaly. No cervical point tenderness, crepitus, or step-offs. No midline tenderness. CARDIOVASCULAR: Regular rate and rhythm without murmurs, gallops, or rubs. CHEST WALL: No Paradoxical movements, no flail chest segment. Scattered ecchymosis near the left lower lateral ribs, mild tenderness to palpation. No crepitus or step-offs. No obvious deformity or swelling. RESPIRATORY: Clear to auscultation. Breath sounds equal bilaterally. No wheezes, rales, or rhonchi. GASTROINTESTINAL: Abdomen soft, non-tender, nondistended. Bowel sounds are active. No hepato-splenomegaly, or palpable masses. No guarding. No jordan sign or Shah Grewal sign. SKIN: warm, Dry, intact with no suspicious lesions or rash, good texture and turgor. NEURO: awake, alert, and oriented to person, place and time. There were no obvious focal neurologic abnormalities. EXTREMITIES: No joint tenderness, effusion, or edema noted. BACK: Nontender without deformity. No CVA tenderness. Thoracic, lumbar point tenderness, crepitus, or step-offs. Course Course Emergency Course: Portions of this record may have been created with voice recognition software Level of Care: Express Care Visit Vital Signs Vital signs: Vital Signs Temperature 97.6 F 12/07/24 11:01 Pulse Rate 50 L 12/07/24 11:01 Respiratory Rate 20 12/07/24 11:01 Blood Pressure 158/86 H 12/07/24 11:01 Pulse Oximetry 100 12/07/24 11:01 Oxygen Delivery Room Air 12/07/24 11:01 Temperature 97.6 F 12/07/24 11: Pulse Rate 50 L 12/07/24 11: Respiratory Rate 20 12/07/24 11: Blood Pressure 158/86 H 12/07/24 11:01 Pulse Oximetry 100 12/07/24 11:01 Oxygen Delivery Room Air 12/07/24 11:01 Reviewed MDM - Fall MDM Narrative Medical decision making narrative: Bruising can be palpated over the left lower lateral ribs, no flank bruising or tenderness. X-ray of left ribs show no evidence of fracture or acute findings. Likely patient has rib contusion. Will prescribe hydrocodone as needed for pain since patient cannot take NSAIDs. Will also give patient incentive spirometer discussed with patient the importance of using it to prevent pneumonia. Strict ER precautions were discussed to go to the ER immediately if he develops any sign of intra-abdominal bleeding such as flank bruising or abdominal bruising, signs of pneumonia, severe headaches, vision problems, or breathing problems, or any other concerns. Discussed physical exam findings. Advised supportive measures and signs/symptoms to go to the ER. Pt is appropriate for outpt treatment and f/u. Differential Diagnosis Differential diagnosis: Likely other (Fall, rib fracture, rib contusion, hemothorax, abdominal injury, head injury) Critical Care Time Critical Care Time Critical Care Time: No Discharge Plan Discharge Clinical Impression: Fall from ground level Contusion of rib on left side Qualifiers: Encounter type: initial encounter Qualified Code(s): S29.8XXA - Other specified injuries of thorax, initial encounter Patient Disposition: Home Condition: Stable Instructions: Antibiotic Form, Rib Contusion (ED) Additional Instructions: X-ray of your ribs in chest was negative for any rib fractures or acute findings. Is likely of rib contusions. Please use the incentive spirometer while awake every hour, on the hour, inhaling 10 deep breaths. May take Tylenol as needed for pain. Please discuss with your doctor if you are able to take any NSAIDs. Take the hydrocodone as directed, he takes it only as a last resort for pain. Hydrocodone may make you drowsy so do not drive or operate machinery while taking it. Follow-up PCP in 3-5 days. If you develop any bruising in your flank area, abdominal pain, nausea, vomiting, bloody stools, vomiting blood, chest pain, shortness of breath, coughing up blood, severe headaches, vision changes, vomiting, or any other concerns please go to the ER immediately. Patient Language: Malian Prescriptions: New hydrocodone-acetaminophen 5-325 mg tablet 1 tablet PO Q8H PRN (Reason: pain) Qty: 10 0RF No Action aspirin [Adult Low Dose Aspirin] 81 mg tablet,delayed release (DR/EC) 81 mg PO DAILY isosorbide mononitrate 30 mg tablet extended release 24 hr 30 mg PO DAILY Jardiance 10 mg tablet 10 mg PO DAILY Qty: 30 5RF atorvastatin 40 mg Tablet 40 mg PO DAILY clopidogrel [Plavix] 75 mg Tablet 75 mg PO DAILY ezetimibe 10 mg Tablet 10 mg PO DAILY cholecalciferol (vitamin D3) 25 mcg (1,000 unit) Tablet 25 mcg PO DAILY tramadol 50 mg tablet 50 mg PO Q6H PRN (Reason: pain) Qty: 20 0RF zolpidem 10 mg tablet 10 mg PO HS PRN (Reason: Insomnia) Qty: 30 4RF amlodipine [Norvasc] 5 mg tablet 5 mg PO DAILY lisinopril 20 mg tablet 20 mg PO DAILY esomeprazole magnesium 40 mg capsule,delayed release(DR/EC) 40 mg PO DAILY Qty: 90 2RF Follow-up/Referrals: Hieu Miranda MD [Primary Care Provider] - Time of Disposition: 12:27
== END 2024-12-07 12:30 | disposition home or self-care (01) ==
PROVIDERS: PCP Family Medicine Adolescent Medicine
DX: S20.222A Contusion of left back wall of thorax, initial encounter (principal); W19.XXXA Unspecified fall, initial encounter; N40.0 Benign prostatic hyperplasia without lower urinary tract symptoms; N18.30 Chronic kidney disease, stage 3 unspecified; Z79.82 Long term (current) use of aspirin; Z79.01 Long term (current) use of anticoagulants
CPT/HCPCS: 71101; 99213; G0463

== ENCOUNTER 2025-05-19 13:17 | Outpatient (CLI) | payer MEDICARE, SELFPAY ==
--- NOTE | ~2025-05-19 | CT_ITS ---
EXAMINATION: CT abdomen pelvis wo/w con DATE: 05/19/2025 14:06 INDICATION: Gross hematuria TECHNIQUE: Computed tomography (CT) of the abdomen and pelvis was performed with 100 mL Omnipaque-350 intravenous contrast. Automated exposure control and iterative reconstruction technique were employed. The dose-length product was 901.32 mGy-cm. COMPARISON: 02/08/2024 FINDINGS: Calcified pleural plaques along the left lung base suggesting sequela of prior exudative effusion.. Heart size is normal. Atherosclerotic coronary artery calcific lesions and likely prior coronary artery stenting. Aortic valve calcification. No pericardial or pleural effusion. Small sliding-type hiatal hernia. 1 cm hypodense enhancing lesion in the right hepatic lobe which appears to demonstrate discontinuous puddling of contrast on study from 04/16/2023 most consistent with a hemangioma. Spleen, pancreas and bilateral adrenal glands are normal. Likely age-related mild bilateral renal atrophy. Symmetric renal parenchymal enhancement. No urolithiasis or hydronephrosis. The bilateral renal collecting systems and ureters are opacified in their near entirety with no evident filling defects or urothelial irregularities. Prostatomegaly with asymmetric left-sided enlargement of the prostate which measures 4.7 x 4.7 cm. There is a trabeculated mucosal surface to the bladder along with several small bladder diverticula, likely related to chronic outlet obstruction. There are of few scattered clonic diverticula without adjacent from trace stranding to suggest diverticulitis. No bowel obstruction. No free intraperitoneal gas or fluid. No pathologically enlarged abdominal or pelvic lymphadenopathy. Small bilateral fat-containing inguinal hernias. There are surgical scarring in the overlying subcutaneous tissues of the right inguinal region. Severe lumbar and lower thoracic spondylosis. IMPRESSION: 1. Likely age-related mild bilateral renal atrophy. Otherwise normal kidneys and ureters with no urolithiasis or hydronephrosis. 2. Prostatomegaly with asymmetric enlargement of the left side of the prostate. 3. Trabeculated bladder mucosa with scattered small bladder diverticula likely related to chronic outlet obstruction from the enlarged prostate. Reviewed, dictated and finalized at location A. [employer] IMPRESSION: 1. Likely age-related mild bilateral renal atrophy. Otherwise normal kidneys an d ureters with no urolithiasis or hydronephrosis. 2. Prostatomegaly with asymmetric enlargement of the left side of the prostate. 3. Trabeculated bladder mucosa with scattered small bladder diverticula likely related to chronic outlet obstruction from the enlarged prostate.
[2025-05-19 13:48] LABS: Estimated Glomerular Filt Rate 45
== END 2025-05-19 13:18 | disposition home or self-care (01) ==
PROVIDERS: PCP Family Medicine Adolescent Medicine; Visit Provider Urology
DX: R31.0 Gross hematuria (principal)
CPT/HCPCS: 74178; Q9967